=== PATIENT | male | born 1955 | race Caucasian/White ===

== ENCOUNTER 2020-01-23 10:18 | Inpatient (IN) | payer BC, OTHER ==
[~2020-01-23] VITALS: Ht 177.8 cm; Wt 133.0 kg
--- OUTSIDE RECORDS SUMMARY | 2020-01-23 10:22 | XMS REPORT | Referral Summary ---
Author Author [facility] Organization [facility] Address Unknown Phone Unavailable Care Team Providers Care Almond Paste Molder Name Role Phone Rhett Teran PCP Encounter VC Date(s): 01/24/15 - 01/24/15 [facility], [facility], [facility] [address] [place] [address] Discharge Disposition: 01-Home or Self Care Attending Physician: Rhett Teran MD Admitting Physician: Rhett Teran MD Vital Signs No data available for this section Problem List Condition Effective Dates Status Health Status Informan t Allergic rhinitis Active (disorder)(Confirmed ) Asthma(Confirmed)1 Active Benign hypertrophy Active of prostate(Confirmed) Gastroesophageal Active reflux disease (disorder)(Confirmed ) History of colon Active polyps(Confirmed) Obesity(Confirmed) Active patient Right Elbow & 03/01/07 Active Forearm Strain(Confirmed)2 1See Conversion Document. 2Home. See Conversion Document. Allergies, Adverse Reactions, Alerts No Known Medication Allergies Medications aspirin 81 mg, Oral, Daily, Aspir-81 81 mg tablet, delayed release Start Date: 01/19/15 Status: Ordered Centrum Silver oral tablet 1 tabs, Oral, Daily Start Date: 01/19/15 Status: Ordered ferrous sulfate 65 mg, Oral, Daily Start Date: 01/19/15 Status: Ordered fluticasone 50 mcg/inh nasal spray 50 mcg 1 sprays, Nasal, Daily, by intranasal route every day in each nostril., # 16 g, 3 Refill(s), Pharmacy: [facility] Start Date: 04/22/15 Stop Date: 04/16/16 Status: Ordered glucosamine Oral, 0 Refill(s) Start Date: 01/24/15 Status: Ordered ibuprofen Oral, q6hr, take 1 capsule by oral route every 6 hours as needed. Start Date: 01/19/15 Status: Ordered omega-3 polyunsaturated fatty acids oral capsule 1 caps, Oral, Daily, [place]-3 Start Date: 01/19/15 Status: Ordered omeprazole 40 mg oral delayed release capsule See Instructions, TAKE 1 CAPSULE DAILY, # 90 caps, eRx: [facility] [place], TAKE 1 CAPSULE DAILY Start Date: 08/03/15 Status: Ordered Vitamin C 500 mg, Oral, Daily, Vitamin C 500 mg capsule, extended release. Start Date: 01/19/15 Status: Ordered vitamin E 400 intl units oral capsule 400 Intl_Units 1 caps, Oral, Daily Start Date: 01/19/15 Status: Ordered Results No data available for this section Immunizations No data available for this section Procedures Procedure Date Related Diagnosis Body Site Hernia1 1See Conversion Document. Social History Social History Type Response Smoking Status Never smoker Assessment and Plan No data available for this section
--- OUTSIDE RECORDS SUMMARY | 2020-01-23 10:22 | XMS REPORT | Referral Summary ---
Author Author [facility] Organization [facility] Address Unknown Phone Unavailable Care Team Providers Care Agent Based Modeler Name Role Phone Rhett Teran PCP Encounter VC Date(s): 02/07/15 - 02/07/15 [facility] [place], [facility] [address] [place] [address] Discharge Disposition: 01-Home or Self Care Attending Physician: Ryan Arnett MD Admitting Physician: Ryan Arnett MD Referring Physician: Rhett Teran MD Vital Signs Most recent to 1 oldest [Reference Range]: Peripheral Pulse 74 bpm Rate [60-100 bpm] (02/07/15 1:29 PM) Blood Pressure 128/85 mmHg [90-140/60-90 mmHg] (02/07/15 1:29 PM) Problem List Condition Effective Dates Status Health [...] nostril., # 16 g, 3 Refill(s), Pharmacy: [facility] Start Date: 04/22/15 Stop Date: 04/16/16 Status: Ordered glucosamine Oral, 0 Refill(s) Start Date: 01/24/15 Status: Ordered ibuprofen Oral, q6hr, take 1 capsule by oral route every 6 hours as needed. Start Date: 01/19/15 Status: Ordered omega-3 polyunsaturated fatty acids oral capsule 1 caps, Oral, Daily, [place]-3 Start Date: 01/19/15 Status: Ordered omeprazole 40 mg oral delayed release capsule See Instructions, TAKE 1 CAPSULE DAILY, # 90 caps, [facility]Rx: [facility] [place], TAKE 1 CAPSULE DAILY [...]
--- NOTE | 2020-01-23 10:23 | NUR ---
ULYSSES DUMONT admitted to room 232-1, with an admitting diagnosis of CVA, on 01/23/20 from [facility] via [facility] VE[facility]ICLE, accompanied by FAMILY. ULYSSES DUMONT introduced to surroundings, call light, bed controls, phone, TV, temperature control, lights, meal times, smoking policy, visitor policy, side rail policy, bathrooms and showers. Patient Rights given to patient in the handbook. ULYSSES DUMONT verbalizes understanding that [facility] is not responsible for the loss or damage to any personal effects or valuables that are kept in the patient's possession during their hospitalization. The following Patient Care Plans were discussed with the PATIENT: Discharge Planning, ALTERED CEREBRAL TISSUE PERFUSION, IMPAIRED MOBILITY, SELF CARE DEFICIT, and KNOWLEDGE DEFICIT: CVA. ULYSSES DUMONT verbalizes understanding of Interdisciplinary Patient Education. Patient received Patient Rights Booklet, which includes Privacy Act Statement and Data Collection Information Summary.
--- OUTSIDE RECORDS SUMMARY | 2020-01-23 10:23 | XMS REPORT | Referral Summary ---
Author Author [facility] Organization [facility] Address Unknown Phone Unavailable Care Team Providers Care Gig Tender Name Role Phone Rhett Teran PCP Encounter VC Date(s): 02/07/15 - 02/07/15 [facility] [address] [place] [place] [address] Discharge Disposition: 01-Home or Self Care Attending [...] acids oral capsule 1 caps, Oral, Daily, [place]-3 Start Date: 01/19/15 Status: Ordered omeprazole 40 mg oral delayed release capsule See Instructions, TAKE 1 CAPSULE DAILY, # 90 caps, [facility]Rx: [facility] [place], TAKE 1 CAPSULE DAILY [...]
--- OUTSIDE RECORDS SUMMARY | 2020-01-23 10:23 | XMS REPORT | Referral Summary ---
Author Author [facility] Organization [facility] Address Unknown Phone Unavailable Care Team Providers Care Auto Parts Delivery Driver Name Role Phone Rhett Teran PCP Encounter VC Date(s): 03/28/15 - 03/28/15 [facility], [facility] [address] [place] [place] [address] Discharge Disposition: 01-Home or Self Care Attending Physician: Ryan Arnett MD Admitting Physician: Ryan Arnett MD Vital Signs No data available for [...] nostril., # 16 g, 3 Refill(s), Pharmacy: [facility] Start Date: 04/22/15 Stop Date: 04/16/16 Status: Ordered glucosamine Oral, 0 Refill(s) Start Date: 01/24/15 Status: Ordered ibuprofen Oral, q6hr, take 1 capsule by oral route every 6 hours as needed. Start Date: 01/19/15 Status: Ordered omega-3 polyunsaturated fatty acids oral capsule 1 caps, Oral, Daily, [place]-3 Start Date: 01/19/15 Status: Ordered omeprazole 40 [...]
--- OUTSIDE RECORDS SUMMARY | 2020-01-23 10:23 | XMS REPORT | Referral Summary ---
Author Author [facility], [facility], [facility] Organization [facility] Address Unknown Phone Unavailable Care Team Providers Care Inspection And Testing Supervisor Name Role Phone Rhett Teran PCP Encounter VC Date(s): 04/21/15 - 04/21/15 [facility], [facility], Card[facility] [address] [place] [address] Discharge Diagnosis: PALPITATIONS Discharge Diagnosis: Family history of heart disease Discharge Disposition: 01-Home or Self Care Attending [...] nostril., # 16 g, 3 Refill(s), Pharmacy: [facility] Start Date: 04/22/15 Stop Date: 04/16/16 Status: Ordered glucosamine Oral, 0 Refill(s) Start Date: 01/24/15 Status: Ordered ibuprofen Oral, q6hr, take 1 capsule by oral route every 6 hours as needed. Start Date: 01/19/15 Status: Ordered omega-3 polyunsaturated fatty acids oral capsule 1 caps, Oral, Daily, [place]-3 Start Date: 01/19/15 Status: Ordered omeprazole 40 mg oral delayed release capsule See Instructions, TAKE 1 CAPSULE DAILY, # 90 caps, eRx: [facility] [place], TAKE 1 CAPSULE DAILY Start Date: 10/21/15 Status: Ordered Vitamin C 500 mg, Oral, [...]
--- OUTSIDE RECORDS SUMMARY | 2020-01-23 10:23 | XMS REPORT | Referral Summary ---
Author Author [facility], [facility] Organization [facility] Address Unknown Phone Unavailable Care Team Providers Care Pipe Organ Mechanic Apprentice Name Role Phone Rhett Teran PCP Encounter [facility] [id number] Date(s): 05/28/17 - 05/28/17 [facility] [address] [address] Discharge Diagnosis: Colon polyps Discharge Disposition: 01-Home or Self Care Attending Physician: Sharon Escamilla MD Admitting Physician: Sharon Escamilla MD Vital Signs Most recent to 1 oldest [Reference Range]: Temperature Oral 36.6 degC [35.8-37.3 degC] (05/28/17 7:44 AM) Peripheral Pulse 68 bpm Rate [60-100 bpm] (05/28/17 7:44 AM) Respiratory Rate 18 br/min [14-20 br/min] (05/28/17 7:44 AM) Blood Pressure 115/81 mmHg [90-140/60-90 mmHg] (05/28/17 7:44 AM) SpO2 96 % (05/28/17 7:44 AM) Problem List Condition Effective Dates Status Health [...] Oral, Daily Start Date: 01/19/15 Status: Ordered Flax Seed Oil 0 Refill(s) Start Date: 04/18/16 Status: Ordered fluticasone 50 mcg/inh nasal spray See Instructions, USE ONE SPRAY IN EACH NOSTRIL DAILY, # 16 g, 2 Refill(s), eRx: [facility], USE ONE SPRAY IN EACH NOSTRIL DAILY Start Date: 07/23/16 Status: Ordered glucosamine Oral, 0 Refill(s) Start Date: 01/24/15 Status: Ordered ibuprofen Oral, q6hr, take 1 capsule by oral route every 6 hours as needed. Start Date: 01/19/15 Status: Ordered omega-3 polyunsaturated fatty acids oral capsule 1 caps, Oral, Daily, [place]-3 Start Date: 01/19/15 Status: Ordered omeprazole 40 mg oral delayed release capsule See Instructions, TAKE 1 CAPSULE DAILY, # 90 caps, 3 Refill(s), Pharmacy: [facility], TAKE 1 CAPSULE DAILY Start Date: 04/23/17 Status: Ordered Vitamin C 500 mg, Oral, Daily, Vitamin C 500 mg capsule, extended release. Start Date: 01/19/15 Status: Ordered vitamin E 400 intl units oral capsule 400 Intl_Units 1 caps, Oral, Daily Start Date: 01/19/15 Status: Ordered Results No data available for this section Immunizations Given and Recorded Vaccine Date Status Refusal Reason zoster vaccine live 08/01/16 Given tetanus/diphth/pertuss (Tdap) adult/adol 07/04/16 Given influenza virus vaccine, inactivated 07/04/16 G iven Procedures Procedure Date Related Diagnosis Body Site Hernia1 1See Conversion Document. Social History Social History Type Response Smoking Status Never smoker entered on: 01/19/15 Assessment and Plan Extracted from: Title: Ambulatory Patient Education Author: Fátima Escamilla MD Date: 05/28/17 Gastroenterology Colon Polyps Polyps are tissue growths inside the body. Polyps can grow in many places, including the large intestine (colon). A polyp may be a round bump or a mushroom-shaped growth. You could have one polyp or several. Most colon polyps are noncancerous (benign). However, some colon polyps can become cancerous over time. CAUSES The exact cause of colon polyps is not known. RISK FACTORS This condition is more likely to develop in people who: Have a family history of colon cancer or colon polyps. Are older than 50 or older than 45 if they are . Have inflammatory bowel disease, such as ulcerative colitis or Crohn disease. Are overweight. Smoke cigarettes. Do not get enough exercise. Drink too much alcohol. Eat a diet that is: High in fat and red meat. Low in fiber. Had childhood cancer that was treated with abdominal radiation. SYMPTOMS Most polyps do not cause symptoms. If you have symptoms, they may include: Blood coming from your rectum when having a bowel movement. Blood in your stool.The stool may look dark red or black. A change in bowel habits, such as constipation or diarrhea. DIAGNOSIS This condition is diagnosed with a colonoscopy. This is a procedure that uses a lighted, flexible scope to look at the inside of your colon. TREATMENT Treatment for this condition involves removing any polyps that are found. Those polyps will then be tested for cancer. If cancer is found, your health care provider will talk to you about options for colon cancer treatment. HOME CARE INSTRUCTIONS Diet Eat plenty of fiber, such as fruits, vegetables, and whole grains. Eat foods that are high in calcium and vitamin D, such as milk, cheese, yogurt, eggs, liver, fish, and broccoli. Limit foods high in fat, red meats, and processed meats, such as hot dogs, sausage, shelley, and lunch meats. Maintain a healthy weight, or lose weight if recommended by your health care provider. General Instructions Do not smoke cigarettes. Do not drink alcohol excessively. Keep all follow-up visits as told by your health care provider. This is important. This includes keeping regularly scheduled colonoscopies. Talk to your health care provider about when you need a colonoscopy. Exercise every day or as told by your health care provider. SEEK MEDICAL CARE IF: You have new or worsening bleeding during a bowel movement. You have new or increased blood in your stool. You have a change in bowel habits. You unexpectedly lose weight. This information is not intended to replace advice given to you by your health care provider. Make sure you discuss any questions you have with your health care provider. Document Released: 05/01/2005 Document Revised: 11/26/2016 Document Reviewed: 06/25/2016 [employer] Interactive Patient Education 2017 [employer] No follow up information was provided.
--- OUTSIDE RECORDS SUMMARY | 2020-01-23 10:23 | XMS REPORT | Referral Summary ---
Author Author [facility], [employer] [facility], [facility] [place] [facility], [place] Address Unknown Phone Unavailable Care Team Providers Care Special Warfare Operator Name Role Phone Rhett Teran PCP Encounter VC Date(s): 03/28/15 - 03/28/15 [facility] [place] [address] [place], [place] [address] Discharge Disposition: 01-Home or Self Care Attending Physician: Chuy Diamond MD Referring Physician: Ryan Arnett MD Vital Signs No [...] nostril., # 16 g, 3 Refill(s), Pharmacy: [facility] Start Date: 04/22/15 Stop Date: 04/16/16 Status: Ordered glucosamine Oral, 0 Refill(s) Start Date: 01/24/15 Status: Ordered ibuprofen Oral, q6hr, take 1 capsule by oral route every 6 hours as needed. Start Date: 01/19/15 Status: Ordered omega-3 polyunsaturated fatty acids oral capsule 1 caps, Oral, Daily, [place]-3 Start Date: 01/19/15 Status: Ordered omeprazole 40 [...]
--- OUTSIDE RECORDS SUMMARY | 2020-01-23 10:23 | XMS REPORT | Referral Summary ---
Author Author [facility], [facility], [facility] Organization [facility] [facility] Address Unknown Phone Unavailable Care Team Providers Care Chief Cook Name Role Phone Rhett Teran PCP Encounter VC Date(s): 02/07/15 - 02/07/15 [facility], [facility], Card[facility] [address] [place] [address] Discharge Disposition: 01-Home or Self Care [...] acids oral capsule 1 caps, Oral, Daily, [place]-3 Start Date: 01/19/15 Status: Ordered omeprazole 40 mg oral delayed release capsule See Instructions, TAKE 1 CAPSULE DAILY, # 90 caps, eRx: [facility] [place], TAKE 1 CAPSULE DAILY [...]
--- OUTSIDE RECORDS SUMMARY | 2020-01-23 10:23 | XMS REPORT | Referral Summary ---
Author Author [facility] Organization [facility] Address Unknown Phone Unavailable Care Team Providers Care Vamper Name Role Phone Rhett Teran PCP Encounter VC Date(s): 04/23/17 - 04/23/17 [facility] [place] [address] [place] [address] J S Discharge Diagnosis: History of colon polyps Discharge Diagnosis: Vertigo Discharge Diagnosis: Gastroesophageal reflux disease (disorder) Discharge Disposition: 01-Home or Self Care Attending Physician: Rhett Teran MD Admitting Physician: Rhett Teran MD Vital Signs Most recent to 1 oldest [Reference Range]: Apical Heart Rate 74 bpm [60-100 bpm] (04/23/17 8:14 AM) Blood Pressure 138/80 mmHg [90-140/60-90 mmHg] (04/23/17 8:14 AM) SpO2 96 % (04/23/17 8:14 AM) Problem List Condition Effective Dates Status [...] acids oral capsule 1 caps, Oral, Daily, [place]-3 Start Date: 01/19/15 Status: Ordered omeprazole 40 mg oral delayed release capsule See Instructions, TAKE 1 CAPSULE DAILY, # 90 caps, 3 Refill(s), Pharmacy: [facility], TAKE 1 CAPSULE DAILY Start Date: 04/23/17 Status: Ordered Vitamin C 500 mg, Oral, Daily, Vitamin C 500 mg capsule, extended release. Start Date: 01/19/15 Status: Ordered vitamin E 400 intl units oral capsule 400 Intl_Units 1 caps, Oral, Daily Start Date: 01/19/15 Status: Ordered Results Hematology Most recent to 1 oldest [Reference Range]: WBC [4.8-10.8 4.8 10*3/uL 10*3/uL] (04/23/17 12:00 AM) RBC [4.60-6.20] 4.65 (04/23/17 12:00 AM) Hgb [14.0-18.0 13.8 gm/dL gm/dL] *LOW* (04/23/17 12:00 AM) Hct [42.0-52.0 %] 40.7 % *LOW* (04/23/17 12:00 AM) MCV [82.0-99.0 fL] 87.5 fL (04/23/17 12:00 AM) MCH [27.0-32.0 pg] 29.7 pg (04/23/17 12:00 AM) MCHC [32.0-36.0 33.9 gm/dL gm/dL] (04/23/17 12:00 AM) RDW [11.5-14.5 %] 13.6 % (04/23/17 12:00 AM) Platelet [150-400 245 10*3/uL 10*3/uL] (04/23/17 12:00 AM) MPV [8.8-14.8 fL] 10.0 fL (04/23/17:00 AM) Immature 0.4 % Granulocytes (04/23/17:00 AM) [0.0-1.0 %] Neutrophils [51-75 62 % %] (04/23/17:00 AM) Lymphocytes [20-46 26 % %] (04/23/17:00 AM) Monocytes [4-11 %] 9 % (04/23/17:00 AM) Eosinophils [0-4 %] 2 % (04/23/17 AM) Basophils [0-2 %] 0 % (04/23/1700 AM) Neutro Absolute 2.95 [1.90-7.00] (04/23/17:00 AM) Lymph Absolute 1.24 [0.80-3.30] (04/23/17:00 AM) [place] Absolute 0.45 [0.30-1.00] (04/23/17 12:00 AM) Eos Absolute 0.11 [0.00-0.50] (04/23/17:00 AM) Baso Absolute 0.01 [0.00-0.20] (04/23/17:00 AM) Chemistry Most recent to 1 oldest [Reference Range]: Sodium Lvl [135-144 138 mEq/L mEq/L] (04/23/17:00 AM) Potassium Lvl 4.9 mEq/L [3.5-5.2 mEq/L] (04/23/17:00 AM) Chloride [99-111 104 mEq/L mEq/L] (04/23/17 12:00 AM) CO2 [23-31 mEq/L] 27 mEq/L (04/23/17:00 AM) AGAP [3-20 mEq/L] 7 mEq/L (04/23/17 12:00 AM) BUN [8-26 mg/dL] 14 mg/dL (04/23/17 12:00 AM) Glucose Lvl [70-99 94 mg/dL mg/dL] (9/5/17 12:00 AM) Creatinine Lvl 1.09 mg/dL [0.72-1.25 mg/dL] (04/23/17 12:00 AM) eGFR [>60 mL/min] >60 mL/min 1 (04/23/17 12:00 AM) Calcium Lvl 9.4 mg/dL [8.4-10.2 mg/dL] (04/23/17 12:00 AM) Albumin Lvl [3.4-4.8 4.2 gm/dL gm/dL] (04/23/17 12:00 AM) Total Protein 6.6 gm/dL [6.0-7.6 gm/dL] (04/23/17 12:00 AM) Globulin [1.8-4.0 2.4 gm/dL gm/dL] (04/23/17 12:00 AM) ALT [0-55 U/L] 25 U/L (04/23/17 12:00 AM) AST [5-34 U/L] 20 U/L (04/23/17 12:00 AM) Alk Phos [40-150 84 U/L U/L] (04/23/17 12:00 AM) Bili Total [0.2-1.2 1.0 mg/dL mg/dL] (04/23/17 12:00 AM) PSA (wihout Reflex 0.6 ng/mL 2 Free) [0.0-4.5 (04/23/17 12:00 AM) ng/mL] Chol [0-199 mg/dL] 172 mg/dL (04/23/17 12:00 AM) Trig [0-149 mg/dL] 118 mg/dL (04/23/17 12:00 AM) HDL [40-84 mg/dL] 37 mg/dL *LOW* (04/23/17 12:00 AM) LDL [0-130 mg/dL] 111 mg/dL (04/23/17 12:00 AM) VLDL Cholesterol 24 mg/dL [0-28 mg/dL] (04/23/17 12:00 AM) Cardiac Risk 4.6 [0.0-5.7] (04/23/17 12:00 AM) TSH with Reflex Free 3.17 T4 [0.35-4.94] (04/23/17 12:00 AM) 1Result Comment: Multiply eGFR results by 1.21 for race. 2Result Comment: AUA PSA Best Practice Guidelines: Age-Adjusted PSA Values by Ethnic Group Age Range Asians - Caucasians Americans 40-49 0-2.0 0-2.0 0-2.5 50-59 0-3.0 0-4.0 0-3.5 60-69 0-4.0 0-4.5 0-4.5 70-79 0-5.0 0-5.5 0-6.5 Urinalysis Most recent to 1 oldest [Reference Range]: UA Color Yellow (04/23/17 12:00 AM) UA Appear Clear (04/23/17 12:00 AM) UA pH [5.0-8.0] 7.0 (04/23/17 12:00 AM) UA Leuk Est Negative [Negative] (04/23/17 12:00 AM) UA Nitrite Negative [Negative] (04/23/17 12:00 AM) UA Protein Negative [Negative] (04/23/17 12:00 AM) UA Glucose Negative [Negative] (04/23/17 12:00 AM) UA Ketones Negative [Negative] (04/23/17 12:00 AM) UA Urobilinogen 0.2 mg/dL [<1.0 mg/dL] (04/23/17 12:00 AM) UA Bili [Negative] Negative (04/23/17 12:00 AM) UA Blood [Negative] Negative (04/23/17 12:00 AM) UA Spec Grav 1.011 [1.003-1.030] (04/23/17 12:00 AM) Type Voided (04/23/17 12:00 AM) Immunizations Given and Recorded Vaccine Date Status Refusal Reason zoster vaccine live 08/01/16 Given tetanus/diphth/pertuss (Tdap) adult/adol 07/04/16 Given influenza virus vaccine, inactivated 07/04/16 G iven Procedures Procedure Date Related Diagnosis Body Site Collection of venous blood by venipuncture 04/23/17 Hernia1 1See Conversion Document. Social History Social History Type Response Smoking Status Never smoker entered on: 01/19/15 Assessment and Plan Extracted from: Title: Office Visit Note Author: Rhett Teran MD Date : 04/23/17 1.Gastroesophageal reflux di sease (disorder) 2.History of colon polyps 3.Vertigo BPH (benign prostatic hyperplasia) Physical exam Ordered: Collection Of Venous Blood By Venipuncture [id number] Follow-up on lab results when available We will arrange for a routine screening colonoscopy Referral to physical therapy for vestibular rehabilitation No other changes are needed at this time. Recommend patient continue the same dose of their current medications and otherwise follow-up as needed. Medication refills will be provided as needed. Anticipate seeing them back at their next scheduled appointment.
--- OUTSIDE RECORDS SUMMARY | 2020-01-23 10:23 | XMS REPORT | Referral Summary ---
Author Author [facility] Organization [facility] Address Unknown Phone Unavailable Care Team Providers Care Finish Painter Name Role Phone Rhett Teran PCP Encounter [facility] Date(s): 06/12/17 - 06/12/17 [facility] [place] [address] [place] [address]- S Discharge Disposition: 01-Home or Self Care Attending [...] acids oral capsule 1 caps, Oral, Daily, [place]-3 Start Date: 01/19/15 Status: Ordered omeprazole 40 [...] smoker entered on: 01/19/15 Assessment and Plan No data available for this section
--- OUTSIDE RECORDS SUMMARY | 2020-01-23 10:23 | XMS REPORT | Referral Summary ---
Author Author [facility], [facility] Organization [facility] Address Unknown Phone Unavailable Care Team Providers Care Stainless Steel Finisher Name Role Phone Rhett Teran PCP Encounter VC Date(s): 04/18/16 - 04/18/16 [facility] Medicine [address] [place] [address] F Discharge Disposition: 01-Home or Self Care Attending Physician: Rhett Teran MD Admitting Physician: Rhett Teran MD Vital Signs Most recent to 1 oldest [Reference Range]: Peripheral Pulse 73 bpm Rate [60-100 bpm] (04/18/16 10:50 AM) Blood Pressure 136/78 mmHg [90-140/60-90 mmHg] (04/18/16 10:50 AM) SpO2 98 % (04/18/16 10:50 AM) Problem List Condition Effective Dates Status [...] delayed release Start Date: 01/19/15 Status: Ordered Calcium 600+D Oral, 0 Refill(s) Start Date: 04/18/16 Status: Ordered Centrum Silver oral tablet 1 [...] acids oral capsule 1 caps, Oral, Daily, [place]-3 Start Date: 01/19/15 Status: Ordered omeprazole 40 mg oral delayed release capsule See Instructions, TAKE 1 CAPSULE DAILY, # 90 caps, 0 Refill(s), Pharmacy: [facility], TAKE 1 CAPSULE DAILY Start Date: 04/18/16 Status: Ordered Vitamin C 500 mg, Oral, Daily, Vitamin C 500 mg capsule, extended release. Start Date: 01/19/15 Status: Ordered vitamin E 400 intl units oral capsule 400 Intl_Units 1 caps, Oral, Daily Start Date: 01/19/15 Status: Ordered Results Hematology Most recent to 1 oldest [Reference Range]: WBC [4.8-10.8 7.9 10*3/uL 10*3/uL] (04/18/16 11:15 AM) RBC [4.60-6.20] 4.74 (04/18/16 11:15 AM) Hgb [14.0-18.0 14.1 gm/dL gm/dL] (04/18/16 11:15 AM) Hct [42.0-52.0 %] 39.9 % *LOW* (04/18/16 11:15 AM) MCV [82.0-99.0 fL] 84.2 fL (04/18/16 11:15 AM) MCH [27.0-32.0 pg] 29.7 pg (04/18/16 11:15 AM) MCHC [32.0-36.0 35.3 gm/dL gm/dL] (04/18/16 11:15 AM) RDW [11.5-14.5 %] 12.9 % (04/18/16 11:15 AM) Platelet [150-400 298 10*3/uL 10*3/uL] (1615 AM) MPV [8.8-14.8 fL] 8.9 fL (04/18/16:15 AM) Immature 0.3 % Granulocytes (1615 AM) [0.0-1.0 %] Neutrophils [51-75 77 % %] *HI* (1615 AM) Lymphocytes [20-46 15 % %] *LOW* (1615 AM) Monocytes [4-11 %] 7 % (1615 AM) Eosinophils [0-4 %] 1 % (04/18/16 AM) Basophils [0-2 %] 0 % (1615 AM) Neutro Absolute 6.10 10*3 [1.90-7.00 10*3] (1615 AM) Lymph Absolute 1.18 10*3 [0.80-3.30 10*3] (04/18/16:15 AM) [place] Absolute 0.55 10*3 [0.30-1.00 10*3] (04/18/16:15 AM) Eos Absolute 0.07 10*3 [0.00-0.50 10*3] (04/18/16:15 AM) Baso Absolute 0.02 10*3 [0.00-0.20 10*3] (04/18/16:15 AM) Chemistry Most recent to 1 oldest [Reference Range]: Sodium Lvl [135-144 137 mEq/L mEq/L] (04/18/16:15 AM) Potassium Lvl 4.3 mEq/L [3.5-5.2 mEq/L] (04/18/16:15 AM) Chloride [99-111 104 mEq/L mEq/L] (04/18/16:15 AM) CO2 [23-31 mEq/L] 29 mEq/L (04/18/16 11:15 AM) AGAP [3-20] 4 (04/18/16:15 AM) BUN [8-26 mg/dL] 14 mg/dL (1615 AM) Glucose Lvl [70-99 99 mg/dL mg/dL] (1615 AM) Creatinine Lvl 1.04 mg/dL [0.72-1.25 mg/dL] (1615 AM) eGFR [>60 mL/min] >60 mL/min 1 (04/18/16 AM) Calcium Lvl 9.9 mg/dL [8.9-10.5 mg/dL] (1615 AM) Albumin Lvl [3.4-4.8 4.5 gm/dL gm/dL] (04/18/16 AM) Total Protein 6.7 gm/dL [6.0-7.6 gm/dL] (1615 AM) Globulin [1.8-4.0 2.2 gm/dL gm/dL] (04/18/16 AM) ALT [0-55 U/L] 26 U/L (04/18/16 AM) AST [5-34 U/L] 22 U/L (04/18/16:15 AM) Alk Phos [40-150 85 U/L U/L] (04/18/16 AM) Bili Total [0.2-1.2 1.6 mg/dL mg/dL] *HI* (04/18/16: AM) PSA (wihout Reflex 0.4 ng/mL 2 Free) [0.0-4.5 (04/18/16: AM) ng/mL] Chol [0-199 mg/dL] 179 mg/dL (04/18/16 11:15 AM) Trig [0-149 mg/dL] 183 mg/dL *HI* (04/18/16 AM) HDL [40-84 mg/dL] 35 mg/dL *LOW* (04/18/16 AM) LDL [0-130 mg/dL] 107 mg/dL (04/18/16 11:15 AM) VLDL Cholesterol 37 mg/dL [0-28 mg/dL] *HI* (8/31/16 11:15 AM) Cardiac Risk 5.1 [0.0-5.7] (04/18/16 11:15 AM) TSH with Reflex Free 2.97 T4 [0.35-4.94] (04/18/16 11:15 AM) 1Result Comment: Multiply eGFR results by 1.21 for race. 2Result Comment: AUA PSA Best Practice Guidelines: Age-Adjusted PSA Values by Ethnic Group Age Range Asians - Caucasians Americans 40-49 0-2.0 0-2.0 0-2.5 50-59 0-3.0 0-4.0 0-3.5 60-69 0-4.0 0-4.5 0-4.5 70-79 0-5.0 0-5.5 0-6.5 Urinalysis Most recent to 1 oldest [Reference Range]: UA Color Yellow (04/18/16 11:14 AM) UA Appear Clear (04/18/16 11:14 AM) UA pH [5.0-8.0] 7.0 (04/18/16 11:14 AM) UA Leuk Est Negative [Negative] (04/18/16 11:14 AM) UA Nitrite Negative [Negative] (04/18/16 11:14 AM) UA Protein Negative [Negative] (04/18/16 11:14 AM) UA Glucose Negative [Negative] (04/18/16 11:14 AM) UA Ketones Negative [Negative] (04/18/16 11:14 AM) UA Urobilinogen 0.2 mg/dL [<1.0 mg/dL] (04/18/16 11:14 AM) UA Bili [Negative] Negative (04/18/16 11:14 AM) UA Blood [Negative] Negative (04/18/16 11:14 AM) UA Spec Grav 1.009 [1.003-1.030] (04/18/16 11:14 AM) Type Clean Catch (04/18/16 11:14 AM) Immunizations No data available for this section Procedures Procedure Date Related Diagnosis Body Site Collection of venous blood by venipuncture 04/18/16 Hernia1 1See Conversion Document. Social History Social History Type Response Smoking Status Never smoker Assessment and Plan No data available for this section
--- OUTSIDE RECORDS SUMMARY | 2020-01-23 10:23 | XMS REPORT | Referral Summary ---
Author Author [facility], [facility], Cardiology Organization [facility], [facility]iology Address Unknown Phone Unavailable Care Team Providers Care Talent Management Specialist Name Role Phone Rhett Teran PCP Encounter VC Date(s): 04/21/15 - 04/21/15 [facility], [place], Cardiology [address] [place] [address] Discharge Diagnosis: Ectopic atrial tachycardia Discharge Diagnosis: Atrial premature beats Discharge Diagnosis: Sinus node dysfunction Discharge Diagnosis: Sleep related hypoxia Discharge Disposition: 01-Home or Self Care Attending Physician: Ryan Arnett MD Admitting Physician: Ryan Arnett MD Vital Signs Most recent to 1 oldest [Reference Range]: Peripheral Pulse 68 bpm Rate [60-100 bpm] (04/21/15 2:30 PM) Blood Pressure 114/80 mmHg [90-140/60-90 mmHg] (04/21/15 2:30 PM) Problem List Condition Effective Dates Status [...] acids oral capsule 1 caps, Oral, Daily, [place]-3 Start Date: 01/19/15 Status: Ordered omeprazole 40 [...] Smoking Status Never smoker Assessment and Plan Extracted from: Title: Office Visit Note Author: Ryan Arnett MD Date: 04/21/15 Assessment/Plan 1.Sinus node dysfunction Ordered: Return to Clinic 2.Atrial premature beats Ordered: Return to Clinic 3.Ectopic atrial tachycardia Ordered: Return to Clinic 4.Sleep related hypoxia Discussion:We reviewedthe findings. I lili a diagram of the heart in order to educate him regarding the phenomenon of sinus node dysfunction and atrial premature contractions andnonsustained atrial tachycardia. We also discussed hispossible eyelidabnormality and his apparent sleep disorder. At this point, it doesn't appear necessary to add any medication for his heart rhythm. I advised him to go ahead with a sleep consultation and he is in agreement. I advised him to call if he has any adverse sustained arrhythmias. I advised him to confer with his eye doctor regarding the eyelid observations. We reviewed his echo findings which actually appeared to be quite reassuring. He has very minor degree ofatrial enlargement. Ordered: Return to Clinic Referrals to Other Providers Referred by: Ryan Arnett MD
--- OUTSIDE RECORDS SUMMARY | 2020-01-23 10:23 | XMS REPORT | Clinical Summary ---
Author Author MD Norris James Bradley Organization [facility], [facility] Address [address] [place] [address] Phone Care Team Providers Care Prn Physical Therapist Name Role Phone MD Norris Bradley W Unavailable [ ] Conditions or Problems Problem Name Problem Code Onset Date Status Entry Date Provider Comment Standard Description Annotate Complex tear of medial meniscus, current injury, left knee, initial encounter 115075640 (SNOMED CT) Active Diana Dickey Te ar of medial meniscus of knee Knee pain, left 10691048 (SNOMED CT) Active Diana Dickey Knee pain Medications Medication Instructions Start Date Stop Date Generic Name NDC Pr ovider OMEPRAZOLE-SODIUM BICARBONATE 40-1100 MG CAPS 1/day OMEPRAZOLE-SODIUM BICARBONATE 96823025234 Mariann Roxy ASPIRIN 81 MG TABS 1/day ASPIRIN 63692566777 Mariann Roxy GLUCOSAMINE HCL 1500 MG TABS 1/day GLUCOSAMINE HCL 99959334232 Mariann Roxy VITAMIN C 500 MG TABS 1/day ASCORBIC ACID 0053 8927043 Mariann Roxy VITAMIN E 400 UNIT TABS VITAMIN E 157349 91519 Mariann Roxy MULTIVITAMINS CAPS MULTIPLE VITAMIN 3848 1676025 Mariann Roxy FISH OIL CAPS [place]ME[place]-3 FATTY ACIDS CAPS 8 [id number] Mariann Roxy LINSEED OIL OIL FLAXSEED OIL [id number] Mariann Roxy IRON TABS FERROUS SULFATE TABS [id number] 70 Mariann Roxy Medications Administered No information available. Allergies, Adverse Reactions, Alerts Observed no known allergies at Results Date Name Value Unit Range Flag Descriptio n Clinical Summary: Patient Portal Indicat or PATPORTALPIN Y This w ill be used to establish a PIN number for patients to register in the Patient Portal. Clinical Summary: Data Submitted by aJnki ent in Portal DEP ROS ENDO Denies endocrine symptoms data entered by patient, review of systems, endocrine DEP ROS SKIN Denies skin symptoms data entered by patient, review of systems, skin DEP ROS PSYC Denies mental health symptoms data entered by patient, review of systems, psychiatric DEP ROS NEUR Denies neurological symptoms data entered by patient, review of systems, neurology DEP ROS MUSK knee pain data e ntered by patient, review of systems, musculoskeletal DEP ROS Denies Genitourinary symptoms data entered by patient, review of systems, genitourinary DEP ROS CARD Denies heart symptoms data entered by patient, review of systems, cardiac DEP ROS PULM Denies respiratory symptoms data entered by patient, review of systems, pulmonary DEP ROS GI Denies gastrointestinal symptoms data entered by patient, review of systems, gastrointestinal DEP ROS HEME Denies Hematologic/Oncologic symptoms data entered by patient, review of systems, hematological DEP ROS GENL Denies general healt h symptoms, Seen primary care physican in the last year data e ntered by patient, review of systems, general (such as fever, chills, weight change, etc.) [id number] Better GE use on ly - for LinkLogic import when terms are not otherwise specified PT MASSAGE No physical therapy, massage ICETRTMT No Patient h as tried ice for pain HEATTRTMT No Patient h as tried heat for pain CHIROPR PROB No person al 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 MEDICAT LIST Multivitamin 1 a day Fish Oil 1200 MG 1 a day Flaxseed oil 1000 MG 1 a day Iron 65 MG 1 a day Vitamin C 500 MG 1 a day Vitamin E 400 US 1 a day list of medicati ons FH HTN Father hypertens ion, family hx FH HEART DIS Father cardia c disease, family hx FH OTHER CA Father cancer, other, family hx DEP ALG LIST I don't have any michelet g allergies.,I don't have any food allergies.,Plant pollens (Hay Fever) Data entered by patient, allergy list DEP MED LIST Omeprazole / Sodium Bicarbonate 40 mg;1100 mg Cap, 1 times per day,Aspirin 81 mg Tab, 1 times per day,Glucosamine 1500 mg Tab, 1 times per day Data entered by patient, medication list Office Visit: NEW LT KNEE PAIN, NO INJUR Y OR SURGERY, NO IMAGES, BCBS, 1... ORALTOBACUSE No [place] smoking status NHIS SMOK STATUS Never smoker Toba cco & president smoking status NDIS CARD RSK GRP No cardia c risk group DIET PROTECTION SPECIALIST yes Dietar y management education, guidance, and counseling (procedure) XRAY HX No xray hist ory XRAY TYPE None xray, typ e Plan of Care No information available. Procedures Code Procedure Name Date Entry Date [id number] SNOMED-CT: 747992961 Hx of Flu Vax SCT-772435172 SNOMED-CT: 656192999 Hx of Pneumovax Given 09/05 CPT-44413 Knee Complete-4 Views SCT-619854880 SNOMED-CT: 313784320 Hx of Flu Vax SCT-248883475 SNOMED-CT: 119517650 Hx of Pneumovax Given 09/05 SCT-224289491 SNOMED-CT: 160742560 Hx of Flu Vax SCT-525299022 SNOMED-CT: 329409930 Hx of Pneumovax Given 09/05 Vital Signs Date Name Value Unit Description BMI (Body Mass Index) 33.63 kg/m2 Body M ass Index [Ratio] BP Diastolic 90 mm[Hg] blood pressure, diastolic - 8462-4 BP Systolic 140 mm[Hg] blood pressure, systolic - 8480-6 Height 72 [in_us] height E&M - 83 02-2 Weight Measured 248 [lb_av] weight E&M - 3141-9 Encounters Code Encounter Date Provider Facility CPT-92659 02814- New Level III To Norris MD [facility], [facility] Social History Concept Description Observation Name Observation Value Units Start Date Alcohol use ETOH USE No Never smoker SMOK STATUS Never smoker Alcohol use ETOH USE No Never smoker SMOK STATUS never smoker
--- OUTSIDE RECORDS SUMMARY | 2020-01-23 10:23 | XMS REPORT | Referral Summary ---
Author Author [facility] Organization [facility], [facility] Address Unknown Phone Unavailable Care Team Providers Care Xray Tech Name Role Phone Rhett Teran PCP Encounter VC Date(s): 01/24/15 - 01/24/15 [facility] [place], [facility] [address] [place] [address] A Discharge Diagnosis: Physical exam Discharge Disposition: -Home or Self Care Attending Physician: Rhett Teran MD Admitting Physician: Rhett Teran MD Vital Signs Most recent to 1 oldest [Reference Range]: Apical Heart Rate 70 bpm [60-100 bpm] (01/24/15 9:26 AM) Blood Pressure 134/76 mmHg [90-140/60-90 mmHg] (01/24/15 9:26 AM) Problem List Condition Effective Dates Status [...] nostril., # 16 g, 3 Refill(s), Pharmacy: [facility] Start Date: 04/22/15 Stop Date: 04/16/16 Status: Ordered glucosamine Oral, 0 Refill(s) Start Date: 01/24/15 Status: Ordered ibuprofen Oral, q6hr, take 1 capsule by oral route every 6 hours as needed. Start Date: 01/19/15 Status: Ordered omega-3 polyunsaturated fatty acids oral capsule 1 caps, Oral, Daily, [place]-3 Start Date: 01/19/15 Status: Ordered omeprazole 40 [...] to 1 oldest [Reference Range]: WBC [4.8-10.8 4.9 10*3/uL 10*3/uL] (01/24/15 10:17 AM) RBC [4.60-6.20 4.98 10*6/uL 10*6/uL] (01/24/15 10:17 AM) Hgb [14.0-18.0 14.8 gm/dL gm/dL] (01/24/15 10:17 AM) Hct [42.0-52.0 %] 42.8 % (01/24/15 10:17 AM) MCV [82.0-99.0 fL] 85.9 fL (01/24/15 10:17 AM) MCH [27.0-32.0 pg] 29.7 pg (01/24/15 10:17 AM) MCHC [32.0-36.0 34.6 gm/dL gm/dL] (01/24/15 10:17 AM) RDW [11.5-14.5 %] 12.6 % (01/24/15 10:17 AM) Platelet [150-400 245 10*3/uL 10*3/uL] (01/24/15 10:17 AM) MPV [8.8-14.8 fL] 9.9 fL (01/24/15:17 AM) Immature 0.2 % Granulocytes (01/24/15:17 AM) [0.0-1.0 %] Neutrophils [51-75 60 % %] (01/24/15:17 AM) Lymphocytes [20-46 29 % %] (01/24/15:17 AM) Monocytes [4-11 %] 9 % (01/24/15: AM) Eosinophils [0-4 %] 2 % (01/24/15: AM) Basophils [0-2 %] 0 % (01/24/15:17 AM) Neutro Absolute 2.94 10*3 [1.90-7.00 10*3] (01/24/15: AM) Lymph Absolute 1.40 10*3 [0.80-3.30 10*3] (01/24/15: AM) Sac Absolute 0.45 10*3 [0.30-1.00 10*3] (01/24/15: AM) Eos Absolute 0.08 10*3 [0.00-0.50 10*3] (01/24/15:17 AM) Baso Absolute 0.02 10*3 [0.00-0.20 10*3] (01/24/15: AM) Chemistry Most recent to 1 oldest [Reference Range]: Sodium Lvl [135-144 139 mEq/L mEq/L] (01/24/15:17 AM) Potassium Lvl 4.5 mEq/L [3.5-5.2 mEq/L] (01/24/15: AM) Chloride [99-111 105 mEq/L mEq/L] (01/24/15:17 AM) CO2 [23-31 mEq/L] 25 mEq/L (01/24/15:17 AM) AGAP [3-20] 9 (01/24/15:17 AM) BUN [8-26 mg/dL] 16 mg/dL (01/24/15 10:17 AM) Glucose Lvl [70-99 93 mg/dL mg/dL] (01/24/15:17 AM) Creatinine Lvl 0.99 mg/dL [0.72-1.25 mg/dL] (01/24/15:17 AM) eGFR [>60 mL/min] >60 mL/min 1 (01/24/15: AM) Calcium Lvl 9.8 mg/dL [8.9-10.5 mg/dL] (01/24/15: AM) Albumin Lvl [3.5-5.0 4.3 gm/dL gm/dL] (01/24/15: AM) Total Protein 6.6 gm/dL [6.2-8.1 gm/dL] (01/24/15: AM) Globulin [1.8-4.0 2.3 gm/dL gm/dL] (01/24/15: AM) ALT [0-55 U/L] 22 U/L (01/24/15: AM) AST [5-34 U/L] 20 U/L (01/24/15: AM) Alk Phos [40-150 82 U/L U/L] (01/24/15: AM) Bili Total [0.2-1.2 1.8 mg/dL mg/dL] *HI* (01/24/15: AM) PSA (wihout Reflex 0.4 ng/mL 2 Free) [0.0-3.5 (01/24/15: AM) ng/mL] Chol [0-199 mg/dL] 166 mg/dL (01/24/15: AM) Trig [0-149 mg/dL] 170 mg/dL *HI* (01/24/15: AM) HDL [40-84 mg/dL] 33 mg/dL *LOW* (01/24/15: AM) LDL [0-130 mg/dL] 99 mg/dL (01/24/15: AM) VLDL Cholesterol 34 mg/dL [0-28 mg/dL] *HI* (01/24/15: AM) Cardiac Risk 5.0 [0.0-5.7] (01/24/15: AM) TSH with Reflex Free 2.08 T4 [0.35-4.94] (01/24/15: AM) 1Result Comment: Multiply eGFR results by 1.21 for race. 2Result Comment: AUA PSA Best Practice Guidelines: Age-Adjusted PSA Values by Ethnic Group Age Range Asians - Caucasians Americans 40-49 0-2.0 0-2.0 0-2.5 50-59 0-3.0 0-4.0 0-3.5 60-69 0-4.0 0-4.5 0-4.5 70-79 0-5.0 0-5.5 0-6.5 Urinalysis Most recent to 1 oldest [Reference Range]: UA Color Yellow (01/24/15 10:31 AM) UA Appear Clear (01/24/15 10:31 AM) UA pH [5.0-8.0] 7.0 (01/24/15 10:31 AM) UA Leuk Est Negative [Negative] (01/24/15 10:31 AM) UA Nitrite Negative [Negative] (01/24/15 10:31 AM) UA Protein Negative [Negative] (01/24/15 10:31 AM) UA Glucose Negative [Negative] (01/24/15 10:31 AM) UA Ketones Negative [Negative] (01/24/15 10:31 AM) UA Urobilinogen 0.2 mg/dL (01/24/15 10:31 AM) UA Bili [Negative] Negative (01/24/15 10:31 AM) UA Blood Negative (01/24/15 10:31 AM) UA Spec Grav 1.020 [1.003-1.030] (01/24/15 10:31 AM) Type Voided (01/24/15 10:31 AM) Immunizations No data available for this section Procedures Procedure Date Related Diagnosis Body Site Collection of venous blood by venipuncture 01/24/15 Hernia1 1See Conversion Document. Social History Social History Type Response Smoking Status Never smoker Assessment and Plan Extracted from: Title: Office Visit Note Author: Rhett Teran MD Date : 01/24/15 Assessment/Plan 1.Physical exam Benign prostatic hyperplasia Palpitation Ordered: Request for Cardiovascular Stress Test Well adult No other changes are needed at this time. Recommend patient continue the same dose of their current medications, and otherwise followup as needed. Medication refills will be provided as needed. Anticipate seeing them back at their next scheduled appointment. Follow-up on lab results when available Treadmill test
--- OUTSIDE RECORDS SUMMARY | 2020-01-23 10:23 | XMS REPORT | Clinical Summary ---
Author Author MD Norris James Bradley Organization [facility], [facility] Address [address] [place] [address] Phone Care Team Providers Care Smelter Charger Name Role Phone MD Norris Bradley W Unavailable [ ] Conditions or Problems Problem Name Problem Code Onset Date Status Entry Date Provider Comment Standard Description Annotate Complex tear of medial meniscus, current injury, left knee, initial encounter 713893343 (SNOMED CT) Active Diana Dickey Te ar of medial meniscus of knee Knee pain, left 11545078 (SNOMED CT) Active Diana Dickey Knee pain Medications Medication Instructions Start Date Stop Date Generic Name NDC Pr ovider OMEPRAZOLE-SODIUM BICARBONATE 40-1100 MG CAPS 1/day OMEPRAZOLE-SODIUM BICARBONATE 40644760270 Mariann Roxy ASPIRIN 81 MG TABS 1/day ASPIRIN 69924500267 Mariann Roxy GLUCOSAMINE HCL 1500 MG TABS 1/day GLUCOSAMINE HCL 42111719438 Mariann Roxy VITAMIN C 500 MG TABS 1/day ASCORBIC ACID 0053 4381218 Mariann Roxy VITAMIN E 400 UNIT TABS VITAMIN E 763639 22910 Mariann Roxy MULTIVITAMINS CAPS MULTIPLE VITAMIN 3848 0012232 Mariann Roxy FISH OIL CAPS OMEGA-3 FATTY ACIDS CAPS 0 8965376109 Mariann Roxy LINSEED OIL OIL FLAXSEED OIL [id number] Mariann Roxy IRON TABS FERROUS SULFATE TABS 705176527 70 Mariann Roxy Medications Administered No information available. Allergies, Adverse Reactions, Alerts Observed no known allergies at Results Date Name Value Unit Range Flag Descriptio n Clinical Summary: Patient Portal Indicat or PATPORTALPIN Y This w ill be used to establish a PIN number for patients to register in the Patient Portal. Clinical Summary: Data Submitted by Janki ent in Portal DEP ROS ENDO Denies [...] No person al history of problems requiring manager primary care MEDICAT LIST Multivitamin 1 a day Fish [...] status NHIS SMOK STATUS Never smoker Toba accounting coordinator smoking status FLIS CARD RSK GRP No cardia c risk group DIET TERRITORY SUPERVISOR yes Dietar y management education, guidance, and counseling (procedure) XRAY HX No xray hist ory XRAY TYPE None xray, typ e Plan of Care No information available. Procedures Code Procedure Name Date Entry Date [id number] SNOMED-CT: 939672814 Hx of Flu Vax SCT-100923219 SNOMED-CT: 795219677 Hx of Pneumovax Given 09/05 CPT-82774 Knee Complete-4 Views SCT-617941744 SNOMED-CT: 889828045 Hx of Flu Vax SCT-926392454 SNOMED-CT: 575807230 Hx of Pneumovax Given 09/05 SCT-171481464 SNOMED-CT: 676611131 Hx of Flu Vax SCT-604822365 SNOMED-CT: 048906668 Hx of Pneumovax Given 09/05 Vital Signs Date Name Value Unit Description BMI (Body Mass Index) 33.63 kg/m2 Body M ass Index [Ratio] BP Diastolic 90 mm[Hg] blood pressure, diastolic - 8462-4 BP Systolic 140 mm[Hg] blood pressure, systolic - 8480-6 Height 72 [in_us] height E&M - 83 02-2 Weight Measured 248 [lb_av] weight E&M - 3141-9 Encounters Code Encounter Date Provider Facility CPT-68298 30798- New Level III To Norris MD [facility], [facility] Social History Concept Description Observation Name Observation Value Units Start Date Alcohol use ETOH USE No Never smoker SMOK STATUS Never smoker Alcohol use ETOH USE No Never smoker SMOK STATUS never smoker
--- OUTSIDE RECORDS SUMMARY | 2020-01-23 10:23 | XMS REPORT | Referral Summary ---
Author Author [facility] Organization [facility] Address Unknown Phone Unavailable Care Team Providers Care Insurance Underwriter Sales Name Role Phone Rhett Teran PCP Encounter VC Date(s): 07/04/16 - 07/04/16 [facility] [address] [place] [address] T S Discharge Disposition: 01-Home or Self Care [...] nostril., # 16 g, 3 Refill(s), Pharmacy: [facility] Start Date: 04/22/15 Stop Date: 04/16/16 Status: Ordered glucosamine Oral, 0 Refill(s) Start Date: 01/24/15 Status: Ordered ibuprofen Oral, q6hr, take 1 capsule by oral route every 6 hours as needed. Start Date: 01/19/15 Status: Ordered omega-3 polyunsaturated fatty acids oral capsule 1 caps, Oral, Daily, [place]-3 Start Date: 01/19/15 Status: Ordered omeprazole 40 mg oral delayed release capsule See Instructions, TAKE 1 CAPSULE DAILY, # 90 caps, 0 Refill(s), Pharmacy: [facility], TAKE 1 CAPSULE DAILY Start Date: 04/18/16 Status: Ordered Vitamin C 500 mg, Oral, Daily, Vitamin C 500 mg capsule, extended release. Start Date: 01/19/15 Status: Ordered vitamin E 400 intl units oral capsule 400 Intl_Units 1 caps, Oral, Daily Start Date: 01/19/15 Status: Ordered Results No data available for this section Immunizations Vaccine Date Refusal Reason tetanus/diphth/pertuss (Tdap) adult/adol 07/04/16 influenza virus vaccine, inactivated 07/04/16 Procedures Procedure Date Related Diagnosis Body Site Hernia1 1See Conversion Document. Social History Social History Type Response Smoking Status Never smoker Assessment and Plan No data available for this section
--- OUTSIDE RECORDS SUMMARY | 2020-01-23 10:24 | XMS REPORT | Clinical Summary ---
Author Author MD Norris James Bradley Organization [facility], [facility] Address [address] [place] [address] Phone Care Team Providers Care Charge Account Authorizer Name Role Phone MD Norris Bradley W Unavailable [ ] Conditions or Problems Problem Name Problem Code Onset Date Status Entry Date Provider Comment Standard Description Annotate Complex tear of medial meniscus, current injury, left knee, initial encounter 062960145 (SNOMED CT) Active Diana Dickey Te ar of medial meniscus of knee Knee pain, left 93921941 (SNOMED CT) Active Diana Dickey Knee pain Medications Medication Instructions Start Date Stop Date Generic Name NDC Pr ovider OMEPRAZOLE-SODIUM BICARBONATE 40-1100 MG CAPS 1/day OMEPRAZOLE-SODIUM BICARBONATE 55369353476 Mariann Roxy ASPIRIN 81 MG TABS 1/day ASPIRIN [id number] Mariann Roxy GLUCOSAMINE HCL 1500 MG TABS 1/day GLUCOSAMINE HCL 33182622292 Mariann Royx VITAMIN C 500 MG TABS 1/day ASCORBIC ACID 0053 4412180 Mariann Roxy VITAMIN E 400 UNIT TABS VITAMIN E 441789 07580 Mariann Roxy MULTIVITAMINS CAPS MULTIPLE VITAMIN 3848 2554315 Mariann Roxy FISH OIL CAPS OMEGA-3 FATTY ACIDS CAPS 6 [id number] Mariann Roxy LINSEED OIL OIL FLAXSEED OIL [id number] Mariann Roxy IRON TABS FERROUS SULFATE TABS 769131483 70 Mariann Roxy Medications Administered No information [...] No person al 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 Procedures Code Procedure Name Date Entry Date [id number] SNOMED-CT: 404394571 Hx of Flu Vax [id number] SNOMED-CT: 031996837 Hx of Pneumovax Given 09/05 CPT-72095 Knee Complete-4 Views [id number] SNOMED-CT: 299947750 Hx of Flu Vax [id number] SNOMED-CT: 258357925 Hx of Pneumovax Given 09/05 [id number] SNOMED-CT: 498365017 Hx of Flu Vax [id number] SNOMED-CT: 010598569 Hx of Pneumovax Given 09/05 Vital Signs Date Name Value Unit Description BMI (Body Mass Index) 33.63 kg/m2 Body M ass Index [Ratio] BP Diastolic 90 mm[Hg] blood pressure, diastolic - 8462-4 BP Systolic 140 mm[Hg] blood pressure, systolic - 8480-6 Height 72 [in_us] height E&M - 83 02-2 Weight Measured 248 [lb_av] weight E&M - 3141-9 Encounters Code Encounter Date Provider Facility CPT-50720 93533- New Level III To Norris MD [facility], [facility] Social History Concept Description Observation Name Observation Value Units Start Date Alcohol use ETOH USE No Never smoker SMOK STATUS Never smoker Alcohol use ETOH USE No Never smoker SMOK STATUS never smoker
--- OUTSIDE RECORDS SUMMARY | 2020-01-23 10:24 | XMS REPORT | Clinical Summary ---
Author Author Pollo San Organization [facility], [facility] Address [address] [place] [address] Phone Care Team Providers Care Executive Sales Manager Name Role Phone Lweis San Unavailable Conditions or Problems No information available. Medications No information available. Medications Administered No information available. Allergies, Adverse Reactions, Alerts No information available. Results Date Name Value Unit Range Flag Descriptio n Clinical Summary: Patient Portal Indicat or PATPORTALPIN Y This w ill be used to establish a PIN number for patients to register in the Patient Portal. Clinical Summary: Data Submitted by Janki mcnair in Portal ALCDRUG No Abused dr plascencia or alcohol? 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 IAIS FH ANEST CMP No family hx of anesthesia complications FATHER A/D father o f patient is alive or MOTHER A/D Alive mother o f patient is alive or LASTPNEUMVAX within the last 2 years pneumovax (pneumonia vaccine), last received FLU VAX within the last 6 months influenza immunization (Flu Vax) has been administered EXERTSOBHX No exertion al shortness of breath, hx of ASTH BREATH No Asthma Shortness of breath symptoms CARD RSK GRP No cardia c risk group CARD RF CMTS No Cardia c risk factor comments CHF TYPE No congestiv e heart failure (CHF), type CHF SYMPTOMS No conges tive heart failure symptoms PMH OTHER Denies Other Problems problems, other, hx of PMH GUPROBS Denies Urinary problems genitourinary disorder, hx of PMH HEPTITIS Denies hepatic problems hepatitis, hx of PMH GERD Denies gastrointestinal problems gastroesophageal reflux disease (GERD), hx of PMH HEMATLGC Denies hematologic problems hematologic disease, hx of PULMPMH Denies respiratory problems Pulmonary Past Medical History PMH CANCER Denies History of Cancer cancer, hx of PMH-ENDOCOM Denies Endocrine problems endocrinology, past medical history, comments PMH NPSYCH Denies Mental Health problems neuropsychological disease, hx of PMH NEURO Denies Neurological problems past medical history, neurology PMH RHEUM Denies Rheumatologic problems Past Medical History Rheumatology XRAY HX No xray hist ory XRAY TYPE None xray, typ e PMH ABD SURG Yes Past M edical Hx of Abdominal Surgery PMH URO SX No Past Med ical Hx of Urological Surgery CARDIO SURG No cardiov ascular surgery, hx of HXENTSURG No History o f ENT surgery 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 No gynecol ogic surgery, hx of HXMUSCSURG No History of musculoskeletal surgery DEP ROS ENDO Denies endocrine symptoms data [...] person al history of problems requiring manager medicare marketing INJURY HX No past inju ry, hx of CHIEF CMPL#2 Left Knee pain c hief complaint #2 VISIT REASON New Problem reas on for visit REF SOURCE Another Patient re ferral source MEDICAT LIST Multivitamin 1 a day Fish [...] day Data entered by patient, medication list Plan of Care Type Date Detail Appointment 09:45 AM To Norris MD , [address], [place], [address], Procedures No information available. Vital Signs No information available. Encounters No information available. Social History Concept Description Observation Name Observation Value Units Start Date Alcohol use ETOH USE No Never smoker SMOK STATUS never smoker
--- OUTSIDE RECORDS SUMMARY | 2020-01-23 10:24 | XMS REPORT | Clinical Summary ---
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 Vital Signs No information available. Encounters No information available. Social History Concept Description Observation Name Observation Value Units Start Date Alcohol use ETOH USE No Never smoker SMOK STATUS never smoker
--- OUTSIDE RECORDS SUMMARY | 2020-01-23 10:24 | XMS REPORT | Continuity of Care Document ---
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 Annual physical exam - *Routine Benign hypertrophy of prostate - *Chronic GERD - *Chronic Family history of prostate cancer - *Stabl e Sinusitis, Acute - *Acute Conjunctivitis, unspecified - *Acute Family History Family Member Diagnosis Age At Onset Status Father (Unknown) Cancer - prostate Yes Social History Social History Element Description Quantity Unknown Allergies, Adverse Reactions, Alerts Substance Reaction Severity Status Unknown Medications Medication Instructions Dosage Effective Dates (start - sto p) Status fluticasone 50 mcg/actuation Nasal [place], Susp inhale 1 spray (50MCG) by intranasal route every day in each nostril 50 MCG - Active Aspir-81 81 mg tablet,delayed release take 1 tablet (8 1MG) by oral route every day 81 MG - Active Centrum Silver tablet take one tablet by mouth dialy N - Active IRON (unknown strength) take 65 mg by mouth daily - Active Vitamin C 500 mg capsule,extended release take one tablet by jorge luis th daily - Active OMEGA-3 (unknown strength) take one tablet by mouth daily - Active FLAXSEED OIL (unknown strength) take one tablet by mouth daily - Active vitamin E 400 unit capsule take one tablet by mout daily - Active CALCIO PATRICK (unknown strength) take one tablet by mouth daily - Active GLUCOSAMINE SULFATE (unknown strength) take one tablet by mouth lul ly - Active GARLIC (unknown strength) take one tablet by mouth daily - Active SUDAFED 12 HOUR (unknown strength) take 1 tablet by oral rou te every 12 hours - Active IBUPROFEN (unknown strength) take 1 capsule by oral ro [place] every 6 hours as needed - Active omeprazole 40 mg capsule,delayed release Take 1 tablet by mouth every day. - Active Immunizations Vaccine Date Status Comments Unknown Results Test Name Date and Time Measure Units Reference Range Abnormal F lag Comments Panel Description: CBC WBC 09:05:00 4.7 K/uL 4.8-10.8 L RBC 09:05:00 5.13 M/uL 4.60-6.20 HGB 09:05:00 14.9 g/dl 14.0-18.0 HCT 09:05:00 42.7 % 42.0-52.0 MCV 09:05:00 83.2 fL 82.0-99.0 MCH 09:05:00 29.0 pg 27.0-32.0 MCHC 09:05:00 34.9 g/dL 32.0-36.0 RDW 09:05:00 12.6 % 11.5-14.5 MPV 09:05:00 10.3 fL 8.8-14.8 Platelet Count 09:05:00 249 K/uL 150-400 Immature Granulocytes 09:05:00 0.0 % 0.0-1.0 Absolute Neutrophils 09:05:00 2.64 THOUS 1.90-7.0 0 Absolute Lymphocytes 09:05:00 1.45 THOUS 0.80-3.3 0 Absolute Monocytes 09:05:00 0.44 THOUS 0.30-1.00 Absolute Eosinophils 09:05:00 0.10 THOUS 0.00-0.5 0 Absolute Basophils 09:05:00 0.03 THOUS 0.00-0.20 Neutrophils 09:05:00 57 % 51-75 Lymphocytes 09:05:00 31 % 20-46 Monocytes 09:05:00 9 % 4-11 Eosinophils 09:05:00 2 % 0-4 Basophils 09:05:00 1 % 0-2 Testing performed at [facility] [address] J[address] Fitter Yovanny Antonio MD Panel Description: Chemistry Profile Glucose 09:05:00 96 mg/dL 70-99 BUN 09:05:00 17 mg/dL 8-26 Creatinine 09:05:00 1.06 mg/dL 0.72-1.25 Calcium 09:05:00 9.5 mg/dL 8.9-10.5 Sodium 09:05:00 136 mEq/L 135-144 Potassium 09:05:00 4.3 mEq/L 3.5-5.2 Chloride 09:05:00 105 mEq/L 99-111 CO2 09:05:00 27 mEq/L 23-31 Albumin 09:05:00 4.2 g/dL 3.5-5.0 Bilirubin Total 09:05:00 1.6 mg/dL 0.2-1.2 H Alkaline Phosphatase 09:05:00 76 U/L 40-150 Protein 09:05:00 6.5 g/dL 6.4-8.3 ALT (SGPT) 09:05:00 20 U/L 0-55 AST (SGOT) 09:05:00 19 U/L 5-34 Anion Gap 09:05:00 4 3-20 Globulin 09:05:00 2.3 g/dL 1.8-4.0 Testing performed at [facility] [address] [place] [address] Jig Fitter Yovanny Antonio MD Panel Description: Lipid Profile-[facility] Cholesterol 09:05:00 183 mg/dL 0-199 Triglycerides 09:05:00 151 mg/dL 0-149 H HDL Cholesterol 09:05:00 30 mg/dL 40-84 L LDL Cholesterol 09:05:00 123 mg/dL 0-130 VLDL Cholesterol 09:05:00 30 mg/dL 0-28 H Cardiac Risk 09:05:00 6.1 0.0-5.7 H Testing performed at [facility] [address] [address] Jig Fitter Yovanny Antonio MD Panel Description: Non-HDL Cholesterol-A [place] Non-HDL Cholesterol 09:05:00 153 mg/dL 0-159 Testing performed at [facility] [address] [place] [address] Jig Fitter Yovanny Antonio MD Panel Description: TSH-[facility] TSH 09:05:00 3.12 uIU/mL 0.35-4.94 Testing performed at [facility] [address] [place] [address] Jig Fitter Yovanny Antonio MD Panel Description: EGFR-[facility] eGFR 09:05:00 >60 mL/min >60 Multiply eGFR results by 1.21 for race.Testing performed at [facility] [address] [address] Jig Fitter Yovanny Antonio MD Panel Description: Prostatic Specific An tigen-[facility] PSA 09:05:00 0.2 ng/mL 0.0-3.5 AUA PSA Best Practice Guidelines: Age-Adjusted PSA Values by Ethnic GroupAge Range Asians - Caucasians [id number] 0-2.0 0-2.0 0-2.550-59 0-3.0 0-4.0 0-3.560-69 0-4.0 0-4.5 0-4.570-79 0-5.0 0-5.5 0- 6.5Testing performed at [facility] [address] [place] [address] Jig Fitter Yovanny Antonio MD Panel Description: Urinalysis with Refle x Microscopic Appearance 09:05:00 Clear Color 09:05:00 Yellow Glucose, Urine 09:05:00 Negative Negative Ketones 09:05:00 Negative Negative Blood 09:05:00 Negative Negative Protein 09:05:00 Negative Negative Nitrites 09:05:00 Negative Negative Bilirubin 09:05:00 Negative Negative Specific [place] 09:05:00 1.005 1.003-1.03 pH 09:05:00 6.5 5.0-8.0 Urobilinogen 09:05:00 0.2 mg/dL <1.0 Leukocyte Esterase 09:05:00 Negative Negative Testing performed at [facility] [address] [facility] [address] Jig Fitter Yovanny Antonio MD Vital Signs Date / Time: Height Weight Pulse Rate Blood Pressure Temperat ure /08:38:00 72.00 in 242.00 lbs 65 /min 120/62 mm[Hg] Procedures Procedure Date Unknown Encounters Encounter Location Date Patient Visit [facility] Patient Visit [facility] Patient Visit [facility] Patient Visit [facility] Cesar Advance Directives Directive Effective Date Unknown
[2020-01-23] MEDS ORDERED: LISI-556 PO (10:35)
[2020-01-23] MEDS ORDERED: ASPI-808 PO (10:35)
[2020-01-23] MEDS ORDERED: ATOR80TA76 PO (10:35)
[2020-01-23] MEDS ORDERED: MULT-593 PO (10:35)
[2020-01-23] MEDS ORDERED: ENOX40DI13 SQ (10:35)
[2020-01-23] MEDS ORDERED: OMEG1CAP58 PO (10:35)
[2020-01-23] MEDS ORDERED: CLOP75TA69 PO (10:35)
[2020-01-23 10:59] VITALS: BP 133/78
[2020-01-23 11:00] VITALS: BP 137/75
--- NOTE | 2020-01-23 12:28 | PM&R Post Admission Assessment ---
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 Apparently Dr Cabrera evaluated the patient and dx left ICA with collateralization present. Patient was placed on statin and BP meds and ASA. EKG revealed RBBB. ECHO revealed EF 60%. Patient retired on [employer] and does not smoke but does drink 2 drinks a day. Patient is at high risk for falls. Images revealed an old basal ganglia stroke that he does not recall ever having any type of stroke event before. Patient has BMI of 42 and appears to have risk for CHERELLE. He takes pride in his excellent health all of his life which is really reassuring but he appears to have more medical issues that just have not been diagnosed since he has never been to a doctor. Unsure his compliance at [facility] will be maintained. Past Ruizzyq-Kslzfj-Qhanoa Hx Past Med/Social Hx: Reviewed Nursing Past Med/Soc Hx, Reviewed and Corrections made Patient Social History Marrital Status: Employed/Student: retired Alcohol Use: Regular Use Smoking Status: Never a Smoker Recent Foreign Travel: No Contact w/other who traveled: No Recent Hopitalizations: Yes (TRANSFER FROM [place]) Recent Infectious Disease Expo: No Past Medical History Surgeries: Orthopedic RBBB on EKG [place] admit 01/20/20 Neurological: Stroke (01/20/20) PM&R Allergy/Meds/Data Review Allergies Coded Allergies: No Known Allergies (Verified Allergy, Unknown, 01/23/20) Home Medications Scheduled Aspirin (Aspirin), 325 MG PO DAILY, (Reported) Atorvastatin Calcium (Atorvastatin Calcium), 80 MG PO HS, (Reported) Clopidogrel Bisulfate (Plavix), 75 MG PO DAILY, (Reported) Enoxaparin Sodium (Lovenox), 40 MG SQ DAILY, (Reported) Lisinopril (Lisinopril), 5 MG PO DAILY, (Reported) Multivitamin with Minerals (Multiple Vitamin), 1 EACH PO DAILY, (Reported) Sargent-3 Fatty Acids/Fish Oil (Sargent 3 1,000 mg Softgel), 2 EACH PO DAILY, (Reported) Current Medications Current Medications Reviewed Review of Systems Constitutional: see HPI, weakness EENTM: no symptoms reported Respiratory: no symptoms reported Cardiovascular: no symptoms reported Gastrointestinal: no symptoms reported Genitourinary: no symptoms reported Musculoskeletal: no symptoms reported Skin: no symptoms reported Psychiatric/Neurological: Weakness, Other (right sided weak) Physical Exam Physical Exam Vital Signs Vital Signs - First Documented 01/23/20 10:59 Temp 37.0 Pulse 74 Resp 16 B/P (MAP) 133/78 (96) Pulse Ox 95 O2 Delivery Room Air Capillary Refill : Height, Weight, BMI Height: '" Weight: lbs. oz. kg; 93.31 BMI Method: General Appearance: No Apparent Distress, WD/WN, Obese Eyes: Bilateral Eye Normal Inspection, Bilateral Eye PERRL HEENT: PERRL/EOMI, Normal ENT Inspection, Pharynx Normal Neck: Full Range of Motion, Normal Inspection, Non Tender, Supple, Carotid Bruit Respiratory: Chest Non Tender, Lungs Clear, Normal Breath Sounds, No Accessory Muscle Use, No Respiratory Distress Cardiovascular: Regular Rate, Rhythm, No Edema, No Gallop, No JVD, No Murmur, Normal Peripheral Pulses Gastrointestinal: Normal Bowel Sounds, No Organomegaly, No Pulsatile Mass, Non Tender, Soft Back: Normal Inspection, No CVA Tenderness, No Vertebral Tenderness Extremity: Normal Capillary Refill, Normal Inspection, Normal Range of Motion (right arm 3/5 ), Non Tender, No Calf Tenderness, No Pedal Edema Neurologic/Psychiatric: Alert, Oriented x3, No Motor/Sensory Deficits, Normal Mood/Affect, clearing inspector II-XII Norm as Tested, Abnormal Gait, Motor Weakness (right arm and right leg weakness 3/5) Skin: Normal Color, Warm/Dry Lymphatic: No Adenopathy PM&R Medical Assessment & Plan REHAB/MEDICAL ASSESSMENT AND PLAN: REHAB IMPAIRMENT GROUP: CVA ETIOLOGIC DIAGNOSIS: CVA The comorbidities that impact the patients function and/or functional outcome by: denial of undiagnosed medical issues since he has never seen a doctor REHAB PLAN: The patient is being admitted to our comprehensive inpatient rehabilitation facility and can tolerate the intensity of service consisting of at least: 180 minutes of therapy a day, 5 out of 7 days a week Rehab treatment will consist of: PT OT will focus on regaining right arm and right leg strength in order to continue recovery senior care after DC to obtain a full recovery The patient/family has a good understanding of our discharge process and will benefit from an interdisciplinary inpatient rehabilitation program. The patient has potential to make improvement and is in need of at least two of the following multidisciplinary therapies including but not limited to physical, occupational, speech, and prosthetics and orthotics. Additionally the patient will need services from respiratory, nutritional services, wound care, psychology, etc. (Customize this to each patient). Given the patients complex condition and risk of further medical complications, rehabilitation services cannot be safely or effectively provided at a lower level of care such as a senior living facility. BARRIERS TO DISCHARGE: Denial of medical issues ESTIMATED LOS: 7 days DISPOSITION: Home RELEVANT CHANGES SINCE PREADMISSION SCREENING: I have compared the patients medical and functional status at the time of the preadmission screening and there are: no changes PROGNOSIS: Good REHABILITATION GOALS: 1. 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 By signing this document, I acknowledge that I have personally performed a full physical examination on this patient within 24 hours of admission to this inpatient rehabilitation facility and have determined the patient to be able to tolerate the above course of treatment at an intensive level for a reasonable period of time. I will be completing a detailed individualized Plan of Care for this patient by day #4 of the patients stay based upon the Preadmission Screen, the Post-Admission Evaluation, and the therapy evaluations. Admission Dx/Comorbidities: (1) Left thalamic infarction ICD Codes: I63.9 - Cerebral infarction, unspecified (2) Basal ganglia stroke ICD Codes: I63.9 - Cerebral infarction, unspecified (3) BMI 40.0-44.9, adult ICD Codes: Z68.41 - Body mass index (BMI) 40.0-44.9, adult (4) RBBB ICD Codes: I45.10 - Unspecified right bundle-branch block (5) Internal carotid artery stenosis ICD Codes: I65.29 - Occlusion and stenosis of unspecified carotid artery (6) Hypertension ICD Codes: I10 - Essential (primary) hypertension (7) Alcohol use ICD Codes: Z72.89 - Other problems related to lifestyle (8) DVT prophylaxis ICD Codes: Z29.9 - Encounter for prophylactic measures, unspecified (9) Hyperlipemia ICD Codes: E78.5 - Hyperlipidemia, unspecified (10) CVA (cerebral vascular accident) ICD Codes: I63.9 - Cerebral infarction, unspecified Assessment/Plan Assessment and Plan Assess & Plan/Chief Complaint Assessment: Left thalamic CVA presumed to have occurred 01/19/20 due to right foot drop and fall and drooling HTN new dx HLP new dx Increased BMI RBBB on EKG Old basal ganglia CVA Left ICA stenosis Alcohol regular use Denial of medical issues undiagnosed since never has seen a doctor and 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
[2020-01-23] MEDS ORDERED: BISACODYL 10 MG SUPP (DULCOLAX) PR PRN (12:30)
[2020-01-23] MEDS ORDERED: ONDANSETRON 4 MG (ZOFRAN) ORAL DISSOLVE TAB PO PRN (12:30)
[2020-01-23] MEDS ORDERED: DOCUSATE SODIUM 100 MG (COLACE) CAP PO PRN (12:30)
[2020-01-23] MEDS ORDERED: guaiFENesin/CODEINE (ROBITUSSIN AC) 10ML UDC PO PRN (12:30)
[2020-01-23] MEDS ORDERED: ENOXAPARIN 40 MG/0.4 ML (LOVENOX) SYR SC SCH (12:30)
[2020-01-23] MEDS ORDERED: ALPRAZolam 0.25 MG (XANAX) TAB PO PRN (12:30)
[2020-01-23] MEDS ORDERED: LOPERAMIDE 2 MG (IMODIUM) TABLET PO PRN (12:30)
[2020-01-23] MEDS ORDERED: FLEET ENEMA ADULT 1 EA BTL PR PRN (12:30)
[2020-01-23] MEDS ORDERED: ACETAMINOPHEN 500 MG TAB (TYLENOL) PO PRN (12:30)
[2020-01-23] MEDS ORDERED: LACTULOSE SYRUP 10GM/15ML (ENULOSE) 30ML UDC PO PRN (12:30)
[2020-01-23] MEDS ORDERED: diphenhydrAMINE 25 MG TAB (BENADRYL) PO PRN (12:30)
[2020-01-23] MEDS ORDERED: CALCIUM CARBONATE 500 MG (TUMS) TAB.CHEW PO PRN (12:30)
[2020-01-23] MEDS ORDERED: MELATONIN 3 MG TABLET PO PRN (12:30)
[2020-01-23] MEDS ORDERED: ACETAMINOPHEN 325 MG TABLET PO PRN (12:45)
--- NOTE | 2020-01-23 13:04 | Physical Therapy Evaluation ---
PT Evaluation-General Medical Diagnosis Admission Date Jan 23, 2020 at 10:18 Medical Diagnosis: CVA Onset Date: Jan 18, 2020 Therapy Diagnosis Therapy Diagnosis: Impaired balance and gait instability Precautions Precautions/Isolations: Fall Prevention, Standard Precautions Weight Bear Status Right Lower Extremity: Right Full Weight Bearing Left Lower Extremity: Left Full Weight Bearing Referral Physician: Daisy Teran DO Reason for Referral: Evaluation/Treatment Medical History Pertinent Medical History: CVA Additional Medical History No prior medical history or illness. Current History 01/18/20, pt stood up and fell down. He was able get up (I) and went to bed. The following day he had a similar fall when standing up and was taken by EMS to [place]. He had (R) UE/LE weakness, slurred speech, and facial droop. All of these issues are resolving rapidly with motor control restored to all areas. He was found to have a 99% blockage of the (L) carotid. Reviewed History: Yes Social History Home: Single Level Current Living Status: Significant Other Entry Into Home: Stairs With Railing PT Steps Into Home: 3 Prior Prior Level of Function SCALE: Activities may be completed with or without assistive devices. 1-Efowtknhjq-juekmin completes the activity by him/herself with no assistance from a helper. 5-Set-up or Clean-up Assistance-helper sets up or cleans up; patient completes activity. [place] assists only prior to or following the activity. 4-Supervision or Touching Assistance-helper provides verbal cues and/or touching/steadying and/or contact guard assistance as patient completes activity. Assistance may be provided throughout the activity or intermittently. 3-Partial/Moderate Assistance-helper does LESS THAN HALF the effort. [place] lifts, holds or supports trunk or limbs, but provides less than half the effort. 2-Substantial/Maximal Assistance-helper does MORE THAN HALF the effort. [place] lifts or holds trunk or limbs and provides more than half the effort. 9-Rnyrqjuei-bcvtzl does ALL the effort. Patient does none of the effort to complete the activity. Or, the assistance of 2 or more helpers is required for the patient to complete the activity. If activity was not attempted, code reason: 7-Patient Refused. 9-Not Applicable-not attempted and the patient did not perform the activity before the current illness, exacerbation or injury. 10-Not Attempted due to Environmental Limitations-(lack of equipment, weather restraints, etc.). 88-Not Attempted due to Medical Conditions or Safety Concerns. Bed Mobility: 6 Transfers (B,C,W/C): 6 Gait: 6 Stairs: 6 Indoor Mobility (Ambulation): Independent Stairs: Independent Prior Devices Use: None PT Evaluation-Current Subjective Pt has no complaints at this time. He is here to improve his (R) lower extremity strength and improve balance/stability during ambulation and transfers. Objective Patient Orientation: Person, Place, Time, Situation ROM/Strength ROM Upper Extremities WFL ROM Lower Extremities WFL Strength Upper Extremities No focal deficits noted with UE strength testing. Strength Lower Extremities 4-/5 (R) anterior tibials, peroneals, quadriceps, and gluteus medius. All other MMT 5/5. Integumentary/Posture Bowel Incontinence: No Bladder Incontinence: No Neuromuscular (Tone, Coordination, Reflexes) Normal reflexes and sensation in (B) UEs and LEs. Sensory Vision: Functional Hearing: Functional Sensation Right Upper Extremit: Intact Sensation Left Upper Extremity: Intact Sensation Right Lower Extremit: Impaired Sensation Left Lower Extremity: Intact Sensation Lower Extremities Altered dermal sensation over the 5th metatarsal. Transfers Roll Left to Right (QC): 6 Sit to Lying (QC): 6 Lying to Sitting/Side of Bed(Q: 6 Sit to Stand (QC): 5 Chair/Yvx-jo-Azmpm Xfer(QC): 5 Toilet Transfer (QC): 5 Car Transfer (QC): 5 Gait Does the Patient Walk?: Yes Mode of Locomotion: Walk Anticipated Mode of Locomotion: Walk Walk 10 feet (QC): 5 Walk 50 ft with 2 Turns(QC): 5 Walk 150 ft (QC): 5 Walking 10ft/uneven surface-QC: 5 Distance: 200ft Gait Assistive Device: FWW Comments/Gait Description Able to ambulate short distances without AD, with (R) ankle instability noted and poor proprioception of the (R) LE. Wheelchair Training Does the Pt Use a Wheelchair?: No Wheel 50 ft with 2 turns (QC): 9 Wheel 150 ft (QC): 9 Stairs #of Steps: 1 1 Step (curb) (QC): 5 4 Steps (QC): 88 12 Steps (QC): 88 Walking Assistive Device: Walker Balance Sitting Static: Normal Sitting Dynamic: Normal Standing Static: Normal Standing Dynamic: Fair Picking up an Object (QC): 3 Special Test Comments (R) LE proprioception inhibits safe performance without the AD. Assessment/Needs Pt to benefit from PT to address activity tolerance, (R) LE strength, and (R) LE proprioceptive/balance training. Rehab Potential: Good PT Top Edge Beveler Goals Top Edge Beveler Goals PT Group Home Goals Time Frame: Feb 06, 2020 Roll Left & Right (QC): 6 Sit to Lying (QC): 6 Lying-Sitting on Side/Bed(QC): 6 Sit to Stand (QC): 6 Chair/Tla-gf-Gvbqa Xfer(QC): 6 Toilet Transfer (QC): 6 Car Transfer (QC): 6 Does the Patient Walk: Yes Walk 10 feet (QC): 6 Walk 50ft with 2 Turns (QC): 6 Walk 150 ft (QC): 6 Walking 10ft on Uneven Surface: 6 1 Step (curb) (QC): 6 4 Steps (QC): 6 12 Steps (QC): 6 Picking up an Object (QC): 6 Does the Pt use WC or Scooter?: No Wheel 50 feet with 2 turns (QC: 9 Type: N/A Wheel 150 feet: 9 Type: N/A PT Plan Problem List Problem List: Activity Tolerance, Functional Strength, Balance, Gait Treatment/Plan Treatment Plan: Continue Plan of Care Treatment Plan: Concurrent Therapy, Education, Functional Activity Mari, Functional Strength, Gait, Safety, Therapeutic Exercise Treatment Duration: Feb 06, 2020 Frequency: At least 5 of 7 days/Wk (IRF) Estimated Hrs Per Day: 1.5 hours per day Patient and/or Family Agrees t: Yes Time/GCodes Time In: 1110 Time Out: 1155 Total Billed Treatment Time: 45 Total Billed Treatment 1, evmodc 15, ex 15, gt 15 LENA MONTERO PT Jan 23, 2020 13:03
[2020-01-23 16:30] VITALS: BP 122/78
[2020-01-23] MEDS: SENNA W/DOCUSATE (SENOKOT S) TABLET PO SCH (21:28)
[2020-01-23] MEDS: polyethylene glycoL POWDER 17 GM (MIRALAX) PACK PO SCH (21:28)
[2020-01-24 04:54] LABS: BASOPHILS % (AUTO) 1 % (0-10); EOSINOPHILS # (AUTO) 0.4 10^3/uL (0.0-0.3); EOSINOPHILS % (AUTO) 5 % (0-10); HEMATOCRIT 45 % (40-54); HEMOGLOBIN 15.9 G/DL (13.3-17.7); LYMPHOCYTES # (AUTO) 2.4 X 10^3 (1.0-4.0); LYMPHOCYTES % (AUTO) 30 % (12-44); MEAN CORPUSCULAR HEMOGLOBIN 32 PG (25-34); MEAN CORPUSCULAR HGB CONC 35 G/DL (32-36); MEAN CORPUSCULAR VOLUME 92 FL (80-99); MEAN PLATELET VOLUME 9.2 FL (7.4-10.4); MONOCYTES # (AUTO) 0.9 X 10^3 (0.0-1.0); MONOCYTES % (AUTO) 11 % (0-12); NEUTROPHILS # (AUTO) 4.3 X 10^3 (1.8-7.8); NEUTROPHILS % (AUTO) 54 % (42-75); PLATELET COUNT 225 10^3/uL (130-400); WHITE BLOOD COUNT 8.1 10^3/uL (4.3-11.0)
[2020-01-24 05:12] LABS: ALBUMIN 3.8 GM/DL (3.2-4.5)
[2020-01-24 05:13] LABS: CHLORIDE 106 MMOL/L (98-107); SODIUM 138 MMOL/L (135-145)
[2020-01-24 05:14] LABS: CALCIUM 8.7 MG/DL (8.5-10.1)
[2020-01-24 05:15] LABS: GLUCOSE 105 MG/DL (70-105); TOTAL PROTEIN 6.6 GM/DL (6.4-8.2)
[2020-01-24 05:16] LABS: CARBON DIOXIDE 22 MMOL/L (21-32)
[2020-01-24 05:17] LABS: BILIRUBIN,TOTAL 0.8 MG/DL (0.1-1.0)
[2020-01-24 05:19] LABS: ALKALINE PHOSPHATASE 55 U/L (40-136); CREATININE SERUM 0.75 MG/DL (0.60-1.30); GFR ESTIMATED > 60
[2020-01-24 05:20] LABS: BUN/CREATININE RATIO 17
[2020-01-24 05:22] LABS: ALANINE AMINOTRANSFERASE 74 U/L (0-55)
[2020-01-24 06:00] VITALS: BP 122/78
[2020-01-24] MEDS: MULTIVIT W/MINERALS TAB (THERAGRAN M) PO SCH (06:15)
[2020-01-24] MEDS: CLOPIDOGREL 75 MG (PLAVIX) TABLET PO SCH (08:07)
[2020-01-24] MEDS: OMEGA 3 (FISH OIL) 1000 MG CAP PO SCH (08:07)
[2020-01-24] MEDS: ASPIRIN 325 MG (5 GR) TABLET PO SCH (08:07)
[2020-01-24] MEDS: polyethylene glycoL POWDER 17 GM (MIRALAX) PACK PO SCH ×2 (08:08→21:06)
[2020-01-24] MEDS: SENNA W/DOCUSATE (SENOKOT S) TABLET PO SCH ×2 (08:08→21:06)
[2020-01-24] MEDS: ENOXAPARIN 40 MG/0.4 ML (LOVENOX) SYR SQ SCH ×2 (08:17→21:09)
[2020-01-24 08:19] VITALS: BP 153/72
[2020-01-24] MEDS ORDERED: lisINopril 5 MG (PRINIVIL) TABLET PO SCH (09:00)
[2020-01-24] MEDS ORDERED: ENOXAPARIN 40 MG/0.4 ML (LOVENOX) SYR SQ SCH (09:00)
--- NOTE | 2020-01-24 12:12 | PM&R Progress Note ---
Subjective HPI/CC On Admission Date Seen by Provider: Jan 24, 2020 Time Seen by Provider: 12:15 Subjective/Events-last exam Drags right leg if he doesn't focus when walking with a walker Looking forward to working with therapy tomorrow BP remains stable ALT elevated c/w ETOH heave use and likely DA SILVA Patient appears to be in significant denial about other medical issues that I suspect he has Will enable PCP to address all of these with him Checked meds and labs Conferred with RN Reviewed therapy notes Review of Systems General: Fatigue Neurological: Weakness, Numbness, Incoordination Objective Exam Vital Signs Vital Signs Date Time Temp Pulse Resp B/P (MAP) Pulse Ox O2 Delivery O2 Flow Rate FiO2 01/24/20 09:33 Room Air 01/24/20 08:19 74 153/72 (99) 01/24/20 06:00 36.9 18 96 Capillary Refill : Less Than 3 Seconds General Appearance: No Apparent Distress, WD/WN, Obese HEENT: PERRL/EOMI, Normal ENT Inspection, Pharynx Normal Neck: Full Range of Motion, Normal Inspection, Non Tender, Supple, Carotid Bruit Respiratory: Chest Non Tender, Lungs Clear, Normal Breath Sounds, No Accessory Muscle Use, No Respiratory Distress Cardiovascular: Regular Rate, Rhythm, No Edema, No Gallop, No JVD, No Murmur, Normal Peripheral Pulses Gastrointestinal: Normal Bowel Sounds, No Organomegaly, No Pulsatile Mass, Non Tender, Soft Back: Normal Inspection, No CVA Tenderness, No Vertebral Tenderness Extremity: Normal Capillary Refill, Normal Inspection, Normal Range of Motion (right arm 3/5 ), Non Tender, No Calf Tenderness, No Pedal Edema Neurologic/Psychiatric: Alert, Oriented x3, No Motor/Sensory Deficits, Normal 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 FIM Transfers Therapy Code Descriptions/Definitions Functional [place] Measure: 0=Not Assessed/NA 4=Minimal Assistance 1=Total Assistance 5=Supervision or Setup 2=Maximal Assistance 6=Modified [place] 3=Moderate Assistance 7=Complete IndependenceSCALE: Activities may be completed with or without assistive devices. 6-Xoloqjvjbk-gxejpcz completes the activity by him/herself with no assistance from a helper. 5-Set-up or Clean-up Assistance-helper sets up or cleans up; patient completes activity. [place] assists only prior to or following the activity. 4-Supervision or Touching Assistance-helper provides verbal cues and/or touching/steadying and/or contact guard assistance as patient completes activity. Assistance may be provided throughout the activity or intermittently. 3-Partial/Moderate Assistance-helper does LESS THAN HALF the effort. [place] lifts, holds or supports trunk or limbs, but provides less than half the effort. 2-Substantial/Maximal Assistance-helper does MORE THAN HALF the effort. [place] lifts or holds trunk or limbs and provides more than half the effort. 5-Vmqdiepqj-ecabvi does ALL the effort. Patient does none of the effort to complete the activity. Or, the assistance of 2 or more helpers is required for the patient to complete the activity. If activity was not attempted, code reason: 7-Patient Refused. 9-Not Applicable-not attempted and the patient did not perform the activity before the current illness, exacerbation or injury. 10-Not Attempted due to Environmental Limitations-(lack of equipment, weather restraints, etc.). 88-Not Attempted due to Medical Conditions or Safety Concerns. Roll Left to Right (QC): 6 Sit to Lying (QC): 6 Sit to Stand (QC): 5 Chair/Bzj-ob-Ngott Xfer(QC): 5 Car Transfer (QC): 5 Gait Training Does the Patient Walk?: Yes Walk 10 feet (QC): 5 Walk 50 ft with 2 Turns(QC): 5 Walk 150 ft (QC): 5 Walking 10ft/uneven surface-QC: 5 Gait Assistive Device: FWW Wheelchair Training Does the Pt Use a Wheelchair?: No Wheel 50 ft with 2 turns (QC): 9 Wheel 150 ft (QC): 9 Stair Training #of Steps: 1 1 Step (curb) (QC): 5 4 Steps (QC): 88 12 Steps (QC): 88 Balance Picking up an Object (QC): 3 Assessment/Plan Assessment and Plan Assess & Plan/Chief Complaint Assessment: Left thalamic CVA presumed to have occurred 01/19/20 due to right foot drop and fall and drooling HTN new dx HLP new dx Increased BMI RBBB on EKG 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
[2020-01-24 17:14] VITALS: BP 144/75
--- NOTE | 2020-01-24 19:35 | NUR ---
WALKED IN THE HALLS WITH THIS RN USING A GAIT BELT AND FWW FOR SAFETY. TOLERATED WELL.
[2020-01-25] MEDS: MULTIVIT W/MINERALS TAB (THERAGRAN M) PO SCH (05:51)
[2020-01-25 06:00] VITALS: BP 121/65
[2020-01-25 08:00] VITALS: BP 132/80
--- NOTE | 2020-01-25 08:00 | NUR ---
PLEASANT AND COOPERATIVE. DENIES DIFFICULTY IN SPEECH OR SWALLOWING. STATES RIGHT SIDE STRENGTH CONTINUES TO IMPROVE, BUT ADMITS TO STILL DRAGGING RIGHT LEG SOME. NO PAIN OR OTHER COMPLAINTS.
[2020-01-25] MEDS: SENNA W/DOCUSATE (SENOKOT S) TABLET PO SCH ×2 (08:19→21:22)
[2020-01-25] MEDS: ASPIRIN 325 MG (5 GR) TABLET PO SCH (08:19)
[2020-01-25] MEDS: OMEGA 3 (FISH OIL) 1000 MG CAP PO SCH (08:19)
[2020-01-25] MEDS: lisINopril 20 MG (PRINIVIL) TABLET PO SCH (08:19)
[2020-01-25] MEDS: CLOPIDOGREL 75 MG (PLAVIX) TABLET PO SCH (08:19)
[2020-01-25] MEDS: polyethylene glycoL POWDER 17 GM (MIRALAX) PACK PO SCH ×2 (08:20→21:21)
[2020-01-25] MEDS: ENOXAPARIN 40 MG/0.4 ML (LOVENOX) SYR SQ SCH ×2 (08:22→21:22)
[2020-01-25] MEDS ORDERED: lisINopril 5 MG (PRINIVIL) TABLET PO SCH (09:00)
--- NOTE | 2020-01-25 09:39 | PM&R Progress Note ---
Subjective HPI/CC On Admission Date Seen by Provider: Jan 25, 2020 Time Seen by Provider: 09:50 Subjective/Events-last exam No BM for two days Right leg drags a bit may need an AFO Right arm is improving Overall feels like he is doing very well but he has more medical problems than he realizes CT scan showed extensive calcified vessels in the brain Checked meds and labs Conferred with RN Reviewed therapy notes Review of Systems General: Fatigue Musculoskeletal: leg pain Neurological: Weakness, Numbness, Incoordination Objective Exam Vital Signs Vital Signs Date Time Temp Pulse Resp B/P (MAP) Pulse Ox O2 Delivery O2 Flow Rate FiO2 01/25/20 17:20 37.0 71 18 136/80 (98) 96 Room Air Capillary Refill : Less Than 3 Seconds General Appearance: No Apparent Distress, WD/WN, Obese HEENT: PERRL/EOMI, Normal ENT Inspection, Pharynx Normal Neck: Full Range of Motion, Normal Inspection, Non Tender, Supple, Carotid Bruit Respiratory: Chest Non Tender, Lungs Clear, Normal Breath Sounds, No Accessory Muscle Use, No Respiratory Distress Cardiovascular: Regular Rate, Rhythm, No Edema, No Gallop, No JVD, No Murmur, Normal Peripheral Pulses Gastrointestinal: Normal Bowel Sounds, No Organomegaly, No Pulsatile Mass, Non Tender, Soft Back: Normal Inspection, No CVA Tenderness, No Vertebral Tenderness Extremity: Normal Capillary Refill, Normal Inspection, Normal Range of Motion (right arm 3/5 ), Non Tender, No Calf Tenderness, No Pedal Edema Neurologic/Psychiatric: Alert, Oriented x3, No Motor/Sensory Deficits, Normal 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 FIM Transfers Therapy Code Descriptions/Definitions Functional [place] Measure: 0=Not Assessed/NA 4=Minimal Assistance 1=Total Assistance 5=Supervision or Setup 2=Maximal Assistance 6=Modified [place] 3=Moderate Assistance 7=Complete IndependenceSCALE: Activities may be completed with or without assistive devices. 4-Retlagcjji-wdfgusw completes the activity by him/herself with no assistance from a helper. 5-Set-up or Clean-up Assistance-helper sets up or cleans up; patient completes activity. [place] assists only prior to or following the activity. 4-Supervision or Touching Assistance-helper provides verbal cues and/or touching/steadying and/or contact guard assistance as patient completes activity. Assistance may be provided throughout the activity or intermittently. 3-Partial/Moderate Assistance-helper does LESS THAN HALF the effort. [place] lifts, holds or supports trunk or limbs, but provides less than half the effort. 2-Substantial/Maximal Assistance-helper does MORE THAN HALF the effort. [place] lifts or holds trunk or limbs and provides more than half the effort. 0-Dmzyfdlgb-mcjsxg does ALL the effort. Patient does none of the effort to complete the activity. Or, the assistance of 2 or more helpers is required for the patient to complete the activity. If activity was not attempted, code reason: 7-Patient Refused. 9-Not Applicable-not attempted and the patient did not perform the activity before the current illness, exacerbation or injury. 10-Not Attempted due to Environmental Limitations-(lack of equipment, weather restraints, etc.). 88-Not Attempted due to Medical Conditions or Safety Concerns. Roll Left to Right (QC): 6 Sit to Lying (QC): 6 Sit to Stand (QC): 5 Chair/Tks-jh-Qbnua Xfer(QC): 5 Car Transfer (QC): 5 Gait Training Does the Patient Walk?: Yes Walk 10 feet (QC): 5 Walk 50 ft with 2 Turns(QC): 5 Walk 150 ft (QC): 5 Walking 10ft/uneven surface-QC: 5 Gait Assistive Device: FWW Wheelchair Training Does the Pt Use a Wheelchair?: No Wheel 50 ft with 2 turns (QC): 9 Wheel 150 ft (QC): 9 Stair Training #of Steps: 1 1 Step (curb) (QC): 5 4 Steps (QC): 88 12 Steps (QC): 88 Balance Picking up an Object (QC): 3 Assessment/Plan Assessment and Plan Assess & Plan/Chief Complaint Assessment: Left thalamic CVA presumed to have occurred 01/19/20 due to right foot drop and fall and drooling HTN new dx HLP new dx Increased BMI RBBB on EKG 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
--- NOTE | 2020-01-25 11:00 | NUR ---
MADE UP AD STEFAN IN ROOM PER KWADWO KINCAID.
--- NOTE | 2020-01-25 11:56 | Physical Therapy Daily Note ---
PT Daily Note-Current Subjective Patient in recliner pre tx, agrees to PT, has no complaints of pain. Appearance Patient in recliner post tx with nurse call, phone, tray, all needs met. Mental Status Patient Orientation: Normal For Age Transfers SCALE: Activities may be completed with or without assistive devices. 1-Vtqplzwrfa-qbsache completes the activity by him/herself with no assistance from a helper. 5-Set-up or Clean-up Assistance-helper sets up or cleans up; patient completes activity. [place] assists only prior to or following the activity. 4-Supervision or Touching Assistance-helper provides verbal cues and/or touching/steadying and/or contact guard assistance as patient completes activity. Assistance may be provided throughout the activity or intermittently. 3-Partial/Moderate Assistance-helper does LESS THAN HALF the effort. [place] lifts, holds or supports trunk or limbs, but provides less than half the effort. 2-Substantial/Maximal Assistance-helper does MORE THAN HALF the effort. [place] lifts or holds trunk or limbs and provides more than half the effort. 9-Zewdbiwpc-hvyjzg does ALL the effort. Patient does none of the effort to complete the activity. Or, the assistance of 2 or more helpers is required for the patient to complete the activity. If activity was not attempted, code reason: 7-Patient Refused. 9-Not Applicable-not attempted and the patient did not perform the activity before the current illness, exacerbation or injury. 10-Not Attempted due to Environmental Limitations-(lack of equipment, weather restraints, etc.). 88-Not Attempted due to Medical Conditions or Safety Concerns. Sit to Stand (QC): 6 Chair/Tzi-op-Ixvzx Xfer(QC): 6 Weight Bearing Right Lower Extremity: Right Full Weight Bearing Left Lower Extremity: Left Full Weight Bearing Gait Training Distance: 400'x2 Walk 10 feet (QC): 6 Walk 50 ft with 2 Turns(QC): 6 Walk 150 ft (QC): 6 Gait Assistive Device: FWW slow but steady ambulation, good foot and toes clearance on the right side, patient states he has to concentrate on it. Exercises Supine Ex: Heel Slides, Straight leg raise, Hip abd/add (with RTB and ball) Supine Reps: 20 Standing: Heel/toe raises, Step-ups Standing Reps: 20 sit to stand (no hands) 2 sets of 10, LAQ right side for 5 min with 2# ankle weight, side stepping 20'x2, SLS 1 min, lunges (right side) x20 Neuromuscular [place] 25/28, talked to nurse and patient will be independent in room for now, can use the restroom by himself Treatments ambulation, transfers, functional strengthening, balance training Assessment Current Status: Fair Progress occasional rest breaks due to fatigue PT Inspector Exhaust Emissions Goals Inspector Exhaust Emissions Goals PT Inspector Exhaust Emissions Goals Time Frame: Feb 06, 2020 Roll Left & Right (QC): 6 Sit to Lying (QC): 6 Lying-Sitting on Side/Bed(QC): 6 Sit to Stand (QC): 6 Chair/Ujh-ih-Qcelc Xfer(QC): 6 Toilet Transfer (QC): 6 Car Transfer (QC): 6 Does the Patient Walk: Yes Walk 10 feet (QC): 6 Walk 50ft with 2 Turns (QC): 6 Walk 150 ft (QC): 6 Walking 10ft on Uneven Surface: 6 1 Step (curb) (QC): 6 4 Steps (QC): 6 12 Steps (QC): 6 Picking up an Object (QC): 6 Does the Pt use WC or Scooter?: No Wheel 50 feet with 2 turns (QC: 9 Type: N/A Wheel 150 feet: 9 Type: N/A PT Plan Problem List Problem List: Activity Tolerance, Functional Strength, Safety, Balance, Gait, Transfer Treatment/Plan Treatment Plan: Continue Plan of Care Treatment Plan: Concurrent Therapy, Education, Functional Activity Mari, Functional Strength, Gait, Safety, Therapeutic Exercise Treatment Duration: Feb 06, 2020 Frequency: At least 5 of 7 days/Wk (IRF) Estimated Hrs Per Day: 1.5 hours per day Patient and/or Family Agrees t: Yes Safety Risks/Education Patient Education: Gait Training, Transfer Techniques, Correct Positioning, Safety Issues Teaching Recipient: Patient Teaching Methods: Demonstration, Discussion Response to Teaching: Reinforcement Needed Time/GCodes Time In: 1000 Time Out: 1100 Total Billed Treatment Time: 60 Total Billed Treatment 1 visit GT 25' EX 35' SANJIV VALDEZ PT Jan 25, 2020 11:56
--- NOTE | 2020-01-25 12:47 | NUR ---
CM/SS ADMISSION Patient was admitted to ARU from [facility] 01/23/20 for CVA. Additional comorbidities include, in part, left thalamic infarction, basal ganglia stroke, RBBB, internal carotid artery stenosis, HTN, CVA. Patient resides with his spouse, Nette Poole, and will return there when released. Patient is retired, Nette continues second time worker employment. Patient will, therefore, have alone time during the day unless unsafe to do so. PCP: None established. He states he will be going to Nette's physician, Dr. María Elena Medina, DO, [address], [place]. [phone] PHARMACY: None established but will use [facility], [place], [place]. [phone] INSURANCE: [employer] [facility] DME: No previous needs. Patient has FWW acet-mo-haljo he plans to use, will continue to partner with therapy team regarding their recommendations as patient progresses. BARRIERS TO DISCHARGE: Indications that patient was not of a mindset of preventative health care with no history of primary care but with positive list of diagnoses. Encourage compliance to ongoing health management post discharge. CONTACTS: Nette Poole, Spouse [phone] Mendez Poole, Son [phone] Patient understands the purpose and process of the weekly patent care conference and that his first review will be Saturday, January 27, 2020.
--- NOTE | 2020-01-25 13:58 | Physical Therapy Daily Note ---
PT Daily Note-Current Subjective Patient in recliner pre tx, agrees to PT, has no complaints of pain. Appearance Patient in recliner post tx with nurse call, phone, tray, all needs met. Mental Status Patient Orientation: Normal For Age Transfers SCALE: Activities may be completed with or without assistive devices. 5-Tmgixtmuvh-unbqlbq completes the activity by him/herself with no assistance from a helper. 5-Set-up or Clean-up Assistance-helper sets up or cleans up; patient completes activity. [place] assists only prior to or following the activity. 4-Supervision or Touching Assistance-helper provides verbal cues and/or touching/steadying and/or contact guard assistance as patient completes activity. Assistance may be provided throughout the activity or intermittently. 3-Partial/Moderate Assistance-helper does LESS THAN HALF the effort. [place] lifts, holds or supports trunk or limbs, but provides less than half the effort. 2-Substantial/Maximal Assistance-helper does MORE THAN HALF the effort. [place] lifts or holds trunk or limbs and provides more than half the effort. 7-Gfbyijdlg-zrxuny does ALL the effort. Patient does none of the effort to complete the activity. Or, the assistance of 2 or more helpers is required for the patient to complete the activity. If activity was not attempted, code reason: 7-Patient Refused. 9-Not Applicable-not attempted and the patient did not perform the activity before the current illness, exacerbation or injury. 10-Not Attempted due to Environmental Limitations-(lack of equipment, weather restraints, etc.). 88-Not Attempted due to Medical Conditions or Safety Concerns. Sit to Stand (QC): 6 Chair/Fog-bx-Syhqs Xfer(QC): 6 Weight Bearing Right Lower Extremity: Right Full Weight Bearing Left Lower Extremity: Left Full Weight Bearing Gait Training Distance: 400'x2 Walk 10 feet (QC): 6 Walk 50 ft with 2 Turns(QC): 6 Walk 150 ft (QC): 6 Gait Assistive Device: FWW slow but steady ambulation Exercises NuStep Minutes: 15 NuStep Workload: 5 Treatments transfers, ambulation, functional strengthening Assessment Current Status: Fair Progress improving general mobility and endurance PT Assisted Goals Assisted Goals PT Assisted Goals Time Frame: Feb 06, 2020 Roll Left & Right (QC): 6 Sit to Lying (QC): 6 Lying-Sitting on Side/Bed(QC): 6 Sit to Stand (QC): 6 Chair/Tof-nl-Dqibq Xfer(QC): 6 Toilet Transfer (QC): 6 Car Transfer (QC): 6 Does the Patient Walk: Yes Walk 10 feet (QC): 6 Walk 50ft with 2 Turns (QC): 6 Walk 150 ft (QC): 6 Walking 10ft on Uneven Surface: 6 1 Step (curb) (QC): 6 4 Steps (QC): 6 12 Steps (QC): 6 Picking up an Object (QC): 6 Does the Pt use WC or Scooter?: No Wheel 50 feet with 2 turns (QC: 9 Type: N/A Wheel 150 feet: 9 Type: N/A PT Plan Problem List Problem List: Activity Tolerance, Functional Strength, Safety, Balance, Gait, Transfer Treatment/Plan Treatment Plan: Continue Plan of Care Treatment Plan: Concurrent Therapy, Education, Functional Activity Mari, Functional Strength, Gait, Safety, Therapeutic Exercise Treatment Duration: Feb 06, 2020 Frequency: At least 5 of 7 days/Wk (IRF) Estimated Hrs Per Day: 1.5 hours per day Patient and/or Family Agrees t: Yes Safety Risks/Education Patient Education: Gait Training, Transfer Techniques, Correct Positioning, Safety Issues Teaching Recipient: Patient Teaching Methods: Demonstration, Discussion Response to Teaching: Reinforcement Needed Time/GCodes Time In: 1330 Time Out: 1400 Total Billed Treatment Time: 30 Total Billed Treatment 1 visit EX 15' GT 15' SANJIV VALDEZ PT Jan 25, 2020 13:58
--- NOTE | 2020-01-25 14:01 | Occupational Therapy Eval ---
OT Evaluation-General/PLF Medical Diagnosis Admission Date Jan 23, 2020 at 10:18 Medical Diagnosis: CVA Onset Date: Jan 18, 2020 Therapy Diagnosis Therapy Diagnosis: Right sided weakness Precautions Precautions/Isolations: Fall Prevention Weight Bear Status Weight Bearing Restriction: Weight Bearing/Tolerated Referral Physician: Daisy Teran DO Referral Reason: Activity Tolerance, Self Care, Evaluation/Treatment, Strengthening/ROM Medical History Pertinent Medical History: CVA, HTN Current History Pt. states that he became weak at home, and fell. Able to get self up, and went to bed. The next day he did not feel well and could not walk, and was having difficulty moving right UE and talking. Spouse brought him to hospital in [place], where he was diagnosed with CVA. Reviewed History: Yes Social History Home: Single Level Current Living Status: Significant Other Entry Into Home: Stairs With Railing Steps Into Home: 3 ADL-Prior Level of Function SCALE: Activities may be completed with or without assistive devices. 2-Ywpklaanop-zjyflte completes the activity by him/herself with no assistance from a helper. 5-Set-up or Clean-up Assistance-helper sets up or cleans up; patient completes activity. [place] assists only prior to or following the activity. 4-Supervision or Touching Assistance-helper provides verbal cues and/or touching/steadying and/or contact guard assistance as patient completes activity. Assistance may be provided throughout the activity or intermittently. 3-Partial/Moderate Assistance-helper does LESS THAN HALF the effort. [place] lifts, holds or supports trunk or limbs, but provides less than half the effort. 2-Substantial/Maximal Assistance-helper does MORE THAN HALF the effort. [place] lifts or holds trunk or limbs and provides more than half the effort. 6-Zibrmpram-fmgfze does ALL the effort. Patient does none of the effort to complete the activity. Or, the assistance of 2 or more helpers is required for the patient to complete the activity. If activity was not attempted, code reason: 7-Patient Refused. 9-Not Applicable-not attempted and the patient did not perform the activity before the current illness, exacerbation or injury. 10-Not Attempted due to Environmental Limitations-(lack of equipment, weather restraints, etc.). 88-Not Attempted due to Medical Conditions or Safety Concerns. ADL PLOF Comments Pt. was fully independent with daily skills. Lives at [place] with spouse. 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 Self Care: Independent Functional Cognition: Independent DME/Equipment: Bath Chair, Shower DME/Equipment Comments Pt. states that he will have access to a walker. Occupation: Retired from [employer]. Drive Self: Yes OT Current Status Subjective No pain reported. Appearance Pt. is up in chair and alert. Agrees to work with OT. Mental Status/Objective Patient Orientation: Person, Place, Time, Situation Current Upper Extremity ROM WFL Upper Extremity Coordination Pt. is able to fully flex right hand, touch all fingers, and tie shoes. However, movements are slower and more labored than left hand. Upper Extremity Sensation Pt. reports that he has not sensory issues in right UE, but does have some difficulty with light touch discrimination on back of right UE. Upper Extremity Strength 3+/5 Right UE 5/5 left UE Pt. has full ROM in right UE, but movements are slower than left. Pt. has been using theraband and theraputty from [facility] to increase overall strength of right UE. Pt. reports that strength and movement have greatly increased in right UE since original CVA. ADL-Treatment Eating (QC): 6 Oral Hygiene (QC): 6 (per pt.) Shower/Bathe Self (QC): 7 (Pt. declines showering as he showered yesterday.) Upper Body Dressing (QC): 5 (per pt.) Lower Body Dressing (QC): 4 (per pt) On/Off Footwear (QC): 5 (Pt. able to doff/don socks and shoes while seated. Pt. able to tie and untie shoes.) Toileting Hygiene (QC): 4 Other Treatments Pt. is already dressed and seated in chair when OT enters room. Pt. states that he showered yesterday, and will shower tomorrow. Pt. was able to dress this morning after clothing was handed to him. Pt. practiced doffing/donning shoes and socks for this therapist. Stood and able to balance self at walker while holding walker, and then when not holding walker. Pt. marched in place, and does not that his right LE does not feel as strong during movement. Pt. reports no visual issues. Ambulated with SBA/CGA to therapy gym. Tolerated fine motor coordination exercises with therapy pins and nuts/bolts. Pt using bilateral UE for coordination task. Pt. states, "this feels weird" and movements are slower than they normally would be, but pt. able to complete each task. Ambulated back to room. All needs met. Education OT Patient Education: Correct positioning, Exercise program, Modified ADL techniques, Progress toward Goal/Update tx plan, Purpose of tx/functional activities, Reviewed precautions, Rehab process, Transfer techniques Teaching Recipient: Patient Teaching Methods: Demonstration, Discussion Response to Teaching: Verbalize Understanding, Return Demonstration OT Environmental Compliance Specialist Goals Environmental Compliance Specialist Goals Time Frame: Feb 08, 2020 Eating (QC): 6 Oral Hygiene (QC): 6 Toileting Hygiene (QC): 6 Shower/Bathe Self (QC): 6 Upper Body Dressing (QC): 6 Lower Body Dressing (QC): 6 On/Off Footwear (QC): 6 Additional Goals: 1-Demonstrate ADL Tasks, 2-Verbalize Understanding, 3- ImproveStrength/Mari 1=Demonstrate adherence to instructed precautions during ADL tasks. 2=Patient will verbalize/demonstrate understanding of assistive devices/modifications for ADL. 3=Patient will improve strength/tolerance for activity to enable patient to perform ADL's. OT Education/Plan Problem List/Assessment Assessment: Decreased Activ Tolerance, Decreased UE Strength, Dependent Transfers, Impaired Bed Mobility, Impaired Coordination, Impaired I ADL's, Impaired Self-Care Skills Discharge Recommendations Plan/Recommendations: Continue POC Therapy Discharge Recommendati: Home & Family Treatment Plan/Plan of Care Treatment,Training & Education: Yes Patient would benefit from OT for education, treatment and training to promote independence in ADL's, mobility, safety and/or upper extremity function for ADL's. Plan of Care: ADL Retraining, Functional Mobility, Group Exercise/Act as Ind, UE Funct Exercise/Act Treatment Duration: Feb 08, 2020 Frequency: At least 5 of 7 days/Wk (IRF) Estimated Hrs Per Day: 1.5 hours per day Agreement: Yes Rehab Potential: Good Time/GCodes Start Time: 08:30 Stop Time: 09:30 Total Time Billed (hr/min): 60 Billed Treatment Time 1, EVL x 15minutes, ADL x 15minutes, FA x 30minutes GISELLE SANTANA OT Jan 25, 2020 14:01
--- NOTE | 2020-01-25 14:22 | Occupational Ther Daily Note ---
OT Current Status-Daily Note Subjective No pain reported. Appearance Pt. in chair. Agrees to work with OT. Mental Status/Objective Patient Orientation: Person, Place, Time, Situation ADL-Treatment Therapy Code Descriptions/Definitions Functional Gregory Measure: 0=Not Assessed/NA 4=Minimal Assistance 1=Total Assistance 5=Supervision or Setup 2=Maximal Assistance 6=Modified Gregory 3=Moderate Assistance 7=Complete IndependenceSCALE: Activities may be completed with or without assistive devices. 0-Rcnikbtpcd-ycgwanz completes the activity by him/herself with no assistance from a helper. 5-Set-up or Clean-up Assistance-helper sets up or cleans up; patient completes activity. [place] assists only prior to or following the activity. 4-Supervision or Touching Assistance-helper provides verbal cues and/or touching/steadying and/or contact guard assistance as patient completes activity. Assistance may be provided throughout the activity or intermittently. 3-Partial/Moderate Assistance-helper does LESS THAN HALF the effort. [place] lifts, holds or supports trunk or limbs, but provides less than half the effort. 2-Substantial/Maximal Assistance-helper does MORE THAN HALF the effort. [place] lifts or holds trunk or limbs and provides more than half the effort. 7-Wyyyggsdg-fxzynk does ALL the effort. Patient does none of the effort to complete the activity. Or, the assistance of 2 or more helpers is required for the patient to complete the activity. If activity was not attempted, code reason: 7-Patient Refused. 9-Not Applicable-not attempted and the patient did not perform the activity before the current illness, exacerbation or injury. 10-Not Attempted due to Environmental Limitations-(lack of equipment, weather restraints, etc.). 88-Not Attempted due to Medical Conditions or Safety Concerns. Pt. ambulated to therapy gym with SBA using walker. Pt. completed 15 minutes on arm bike at mod resistance, to work on overall strength and endurance. No SOA noted at end of session. Pt. then ambulated back to room with SBA. All needs met and talked with pt.regarding diagnosis and OT goals. Pt. verbalizes understanding. Education OT Patient Education: Correct positioning, Exercise program, Progress toward Goal/Update tx plan, Purpose of tx/functional activities, Reviewed precautions, Rehab process, Transfer techniques Teaching Recipient: Patient Teaching Methods: Demonstration, Discussion Response to Teaching: Verbalize Understanding, Return Demonstration OT Senior Living Goals Senior Living Goals Time Frame: Feb 08, 2020 Eating (QC): 6 Oral Hygiene (QC): 6 Toileting Hygiene (QC): 6 Shower/Bathe Self (QC): 6 Upper Body Dressing (QC): 6 Lower Body Dressing (QC): 6 On/Off Footwear (QC): 6 Additional Goals: 1-Demonstrate ADL Tasks, 2-Verbalize Understanding, 3- ImproveStrength/Mari 1=Demonstrate adherence to instructed precautions during ADL tasks. 2=Patient will verbalize/demonstrate understanding of assistive devices/modifications for ADL. 3=Patient will improve strength/tolerance for activity to enable patient to perform ADL's. OT Education/Plan Problem List/Assessment Assessment: Decreased Activ Tolerance, Impaired I ADL's, Impaired Self-Care Skills Discharge Recommendations Plan/Recommendations: Continue POC Therapy Discharge Recommendati: Home & Family Treatment Plan/Plan of Care Treatment,Training & Education: Yes Patient would benefit from OT for education, treatment and training to promote independence in ADL's, mobility, safety and/or upper extremity function for ADL's. Plan of Care: ADL Retraining, Functional Mobility, Group Exercise/Act as Ind, UE Funct Exercise/Act Treatment Duration: Feb 08, 2020 Frequency: At least 5 of 7 days/Wk (IRF) Estimated Hrs Per Day: 1.5 hours per day Agreement: Yes Rehab Potential: Good Time/GCodes Start Time: 13:00 Stop Time: 13:30 Total Time Billed (hr/min): 30 Billed Treatment Time 1, Ex x 15minutes, FA x 15minutes GISELLE SANTANA OT Jan 25, 2020 14:22
--- NOTE | 2020-01-25 14:49 | NUR ---
Pt is Gnosticist and would like sacraments. Insurance And Benefits Clerk provided prayer and communion and notified Military Nurse per pt request.
--- NOTE | 2020-01-25 14:50 | ST Cognitive Linguistic Eval ---
Speech Evaluation-General Medical Diagnosis CVA Onset Date: Jan 18, 2020 Therapy Diagnosis Therapy Diagnosis: Cognitive-communication Referral Referring Physician: Dr. Teran Medical History Pertinent Medical History: CVA, HTN Reviewed History: Yes Social History Current Living Status: Significant Other Speech PLF-Current Status Prior Level of Function Patient lives at home with his . Prior to this CVA he was independent for his daily needs. Subjective Patient was pleasant and cooperative with the cognitive assessment. Language Eval: Auditory Comprehends Simple Yes/No Ques: Functional Indent/Objects Multiple [place]: Functional Ident/Pics in Multiple [place]: Functional Follows 1-Step Commands: Functional Follows Complex Directions: Functional Follows General Conversations: Functional Language Eval: Verbal Language Completes Spontaneous Greeting: Functional Produces Auto, Serial Info: Functional Imitates Simple Words/Phrases: Functional Word Finding: Functional Requests Basic Needs: Functional States Basic Personal Info: Functional Expresses Complex Ideas: Functional Objective Cognitive Domain Attention: WNL Memory: WNL Problem Solving: Functional Executive Functions: WNL Visuospatial Skills: WNL Composite Severity Rating: WNL Clock Drawing Severity Rating: WNL Objective Formal/Standardized Tests [facility] Mental Status ([facility]) Results 28/30, within normal limits Oral Motor/Speech Production Within Normal Limits Impression The patient is a pleasant 64 y/o male who was admitted to the ARU s/p CVA. Patient was given the SLUMS with a score of 28/30 obtained. Patient's score is within the normal range of function. At this time the patient does not require any further ST services. Speech Patient Assess Expression of Ideas/Wants: Expression (4) Understanding Verbal Content: Understands (4) Brief Interview-Mental Status: Yes Repetition of Three Words: Three (3) Temporal Orientation: Year: Correct (3) Temporal Orientation: Month: Accurate within 5 days(2) Temporal Orientation: Day: Correct (1) Recall : Wear to say "Sock": Yes, no cue required (2) Recall : Color: Yes, no cue required (2) Recall : Bed: Yes, no cue required (2) Memory/Recall Ability: Current season, Location of own room, That he or she is in a hsp/hsp unit Speech-Plan Patient/Family Goals Patient/Family Goals: Patient plans on returning to his home where he lives with his . Treatment Plan Speech Therapy Treatment Plan: Discontinue ST Treatment Duration: Jan 25, 2020 Frequency: 1 time per week Estimated Hrs Per Day: .25 hour per day Rehab Potential: Good Barriers to Learning: None identified Pt/Family Agrees to Plan: Yes Safety Risks/Education Teaching Recipient: Patient Teaching Methods: Discussion Response to Teaching: Verbalize Understanding Education Topics Provided: Safety within his room and communication of wants/needs Time Speech Therapy Time In: 11:00 Speech Therapy Time Out: 11:15 Total Billed Time: 15 Billed Treatment Time 1, [place] CHIARA Carvajal Jan 25, 2020 14:49
--- NOTE | 2020-01-25 15:49 | NUR ---
"RD ASSESSMENT PMHx: stroke PT INTERACTION: Pt was awake and pleasant during nutrition assessment. Pt states current appetite is good, and has been for some time. Note avg PO intake 85% x2d, per chart review. Pt states following a regular diet at home, and has no issues with chewing/swallowing food. Pt states no recent issues with nausea, vomiting, or diarrhea. Pt states some recent issues with constipation. Note last BM was 6/6, and pt currently on bowel regimen of senna BID; and miralax BID, per chart review. Pt states no recent wt changes. Note unable to determine recent wt hx, per chart review. ABNORMAL NUTRITION-RELATED LAB VALUES LOW: HIGH: ALT 74 Est. kcal needs: 2798-1177 kcal | 15-18 kcal/kg Est. Pro needs: 106-133 g Pro | 0.8-1.0 g Pro/kg PES STATEMENT: Given PO intake, no nutrition diagnosis at this time (NO-1.1) INTERVENTION: Continue with current diet order of Regular diet. Will continue to follow and reassess as pt needs, intake, and status change. MONITOR/EVALUATE: PO Intake; Plan of Care; Hydration Status; Weight Status; Lab Values Sanjuana Abad, MS, RD, LD"
[2020-01-25 17:20] VITALS: BP 136/80
[2020-01-26 05:48] VITALS: BP 134/76
[2020-01-26] MEDS: MULTIVIT W/MINERALS TAB (THERAGRAN M) PO SCH (06:13)
--- NOTE | 2020-01-26 06:27 | Individualized Plan of Care ---
Individualized Plan of Care Rehab Nursing IPOC Order Admission Date Jan 23, 2020 at 10:18 Current Orders Orders Patient Visit (01/23/20 ) Pt Eval Moderate Complexity (01/23/20 ) Exercise Therap, Ea 15 Min (01/23/20 ) Gait Training, Ea 15 Min (01/23/20 ) Ambulate 08,12,20 (01/23/20 12:16) Sequential Compression Device Q4H (01/23/20 12:16) Dvt/Vte Risk - Notifiy Physici Q4H (01/23/20 12:16) General/Regular (01/23/20 Lunch) Admission Order(Inpt,Obs,Sdc) (01/23/20 12:22) Vital Signs: Per Unit Policy ( 08,16,00 (01/23/20 12:22) Vincent Hose , (01/23/20 12:22) Sequential Compression Device Q4H (01/23/20 12:22) Animal Ride Attendant-Inpt Rehab Con (01/23/20 12:22) Rehab Nursing Orders-Ipoc (01/23/20 12:22) Physical Therapy Rehab Orders (01/23/20 12:22) Occupational Therapy Rehab Ord (01/23/20 12:22) Speech Therapy Rehab Orders (01/23/20 12:22) Cbc With Automated Diff (01/24/20 06:00) Comprehensive Metabolic Panel (01/24/20 06:00) General/Regular (01/23/20 Dinner) Intake & Output 06,14,22 (01/23/20 12:22) Precautions (Aru) (01/23/20 12:22) Weekly Weight WEEK (01/23/20 12:22) Rehab-Intensity Of Therapy (01/23/20 12:22) Initiate Admission Nursing Pro .admission (01/23/20 12:22) Acetaminophen Tablet (Tylenol Tablet) (01/23/20 12:30) Alprazolam Tablet (Xanax Tablet) (01/23/20 12:30) Calcium Carbonate Chew Tablet (Antacid C (01/23/20 12:30) Diphenhydramine Tablet (Benadryl Tablet) (01/23/20 12:30) Docusate Sodium Capsule (Colace Capsule) (01/23/20 12:30) Bisacodyl Suppository (Dulcolax Supposit (01/23/20 12:30) Lactulose Oral Solution (Enulose Oral So (01/23/20 12:30) Na Phos/Na Biphos Enema (Fleet Enema Vijay (01/23/20 12:30) Guaifenesin/Codeine Syrup (Robitussin Ac (01/23/20 12:30) Loperamide Tablet (Imodium Tablet) (01/23/20 12:30) Enoxaparin Injection (Lovenox Injection) (01/23/20 12:30) Melatonin Tablet (Melatonin Tablet) (01/23/20 12:30) Polyethylene Glycol Powder Pkt (Miralax (01/23/20 21:00) Ondansetron Oral Dissolve Tab (Zofran (01/23/20 12:30) Senna S Tablet (Senokot S Tablet) (01/23/20 21:00) Initiate Admission Nursing Pro .admission (01/23/20 12:22) Aspirin Tablet (Aspirin Tablet) (01/24/20 09:00) Atorvastatin Tablet (Lipitor Tablet) (01/23/20 21:00) Clopidogrel Tablet (Plavix Tablet) (01/24/20 09:00) Enoxaparin Injection (Lovenox Injection) (01/24/20 09:00) Lisinopril Tablet (Zestril Tablet) (01/24/20 09:00) (Nf) Multivitamin With Minerals (Multipl (01/24/20 09:00) (Nf) [place]-3 Fatty Acids/Fish Oil ([place] (01/24/20 09:00) Acetaminophen Tablet/Caplet (Tylenol T (01/23/20 12:45) Therapeutic Multivitamin Tab (Vitamins, (01/24/20 07:00) [place] 3 Capsule (Fish Oil Capsule) (01/24/20 09:00) Enoxaparin Injection (Lovenox Injection) (01/24/20 09:00) Lisinopril Tablet (Zestril Tablet) (01/25/20 09:00) Lisinopril Tablet (Zestril Tablet) (01/25/20 09:00) Patient Visit (01/25/20 ) Gait Training, Ea 15 Min (01/25/20 ) Exercise Therap, Ea 15 Min (01/25/20 ) Patient Visit (01/25/20 ) Speech Sound Lang Comp (01/25/20 ) Rehab Nursing Orders: Ongoing Assess. of Cognitive Status, Ongoing Assess. of Function Status, Bladder Management, Bladder Scan, Bladder Training, Bowel Management, Bowel Training, Disease Management & Educaiton, DVT Prophylaxis, Fall Prevention, Fluid/Electrolyte/Nutrition Mgmt, Infection Prevention, Medication Management & Education, Management of Risks & Complications, Management of Skin Intergrity, Nutrition Management, Pain Management, Patient/Family Support, Safety Management Intensity of Therapy to be met Patient to be seen: Min.3h per day/5 of 7d PT IPOC Problem List: Activity Tolerance, Functional Strength, Safety, Balance, Gait, Transfer Treatment Plan: Continue Plan of Care Concurrent Therapy, Education, Functional Activity Mari, Functional Strength, Gait, Safety, Therapeutic Exercise Treatment Duration: Feb 06, 2020 Frequency: At least 5 of 7 days/Wk (IRF) Estimated Hrs Per Day: 1.5 hours per day OT IPOC Problems: Decreased Activ Tolerance, Impaired I ADL's, Impaired Self-Care Skills OT Treatment, Training and Edu: Yes Plan of Care: ADL Retraining, Functional Mobility, Group Exercise/Act as Ind, UE Funct Exercise/Act Treatment Duration: Feb 08, 2020 Frequency: At least 5 of 7 days/Wk (IRF) Estimated Hrs Per Day: 1.[address] IPOC Speech Therapy Treatment Plan: Discontinue ST Treatment Duration: Jan 25, 2020 Frequency: 1 time per week Estimated Hrs Per Day: .25 hour per day Animal Ride Attendant/Case Mgmt Animal Ride Attendant/Case Managemen: Discharge Planning Dietitian/Geometry Teacher Dietitian/Geometry Teacher to monitor nutritional status and make changes and/or recommendations as needed and work with speech pathology on dietary upgrades as the occur. Physician IPOC Medical Issues being managed closely and that require the 24 hour availability of a physician: Recent CVA with right sided weakness is high risk for recurrent CVA while working on residual in order to safely return home Medical Issues: Bowel/Bladder Function, DVT Prophylaxis, Falls Precautions, Fluid/Electrolyte/Nutrition Balance, Infection Protection, Pain Management Brief Synthesis of Preadmission Screen, Post-Admission Evaluation, and Therapy Evaluations: PT OT will focus on regaining right sided strength in order to safely ambulate without falls and work on fine motor skills of the right hand while monitoring BP Medical Prognosis: Good Anticipated Length of Stay: 7 days JOHAN MIXON DO Jan 26, 2020 06:27
--- NOTE | 2020-01-26 06:27 | PM&R Progress Note ---
Subjective HPI/CC On Admission Date Seen by Provider: Jan 26, 2020 Time Seen by Provider: 09:30 Subjective/Events-last exam No significant issues Working hard with therapy BP good with Lisinopril of 20mg Denies any other significant pain issues No falls but high risk Checked meds and labs Conferred with RN Reviewed therapy notes Review of Systems General: Fatigue Objective Exam Vital Signs Vital Signs Date Time Temp Pulse Resp B/P (MAP) Pulse Ox O2 Delivery O2 Flow Rate FiO2 01/26/20 18:00 37.2 71 18 134/77 (96) 97 Room Air Capillary Refill : Less Than 3 Seconds General Appearance: No Apparent Distress, WD/WN, Obese HEENT: PERRL/EOMI, Normal ENT Inspection, Pharynx Normal Neck: Full Range of Motion, Normal Inspection, Non Tender, Supple, Carotid Bruit Respiratory: Chest Non Tender, Lungs Clear, Normal Breath Sounds, No Accessory Muscle Use, No Respiratory Distress Cardiovascular: Regular Rate, Rhythm, No Edema, No Gallop, No JVD, No Murmur, Normal Peripheral Pulses Gastrointestinal: Normal Bowel Sounds, No Organomegaly, No Pulsatile Mass, Non Tender, Soft Back: Normal Inspection, No CVA Tenderness, No Vertebral Tenderness Extremity: Normal Capillary Refill, Normal Inspection, Normal Range of Motion (right arm 3/5 ), Non Tender, No Calf Tenderness, No Pedal Edema Neurologic/Psychiatric: Alert, Oriented x3, No Motor/Sensory Deficits, Normal Mood/Affect, booth operator II-XII Norm as Tested, Abnormal Gait, Motor Weakness (right arm and right leg weakness 3/5) Skin: Normal Color, Warm/Dry Lymphatic: No Adenopathy Results/Procedures Lab Patient resulted labs reviewed. FIM Transfers Therapy Code Descriptions/Definitions Functional [place] Measure: 0=Not Assessed/NA 4=Minimal Assistance 1=Total Assistance 5=Supervision or Setup 2=Maximal Assistance 6=Modified [place] 3=Moderate Assistance 7=Complete IndependenceSCALE: Activities may be completed with or without assistive devices. 9-Axfsebculh-kgufyxy completes the activity by him/herself with no assistance from a helper. 5-Set-up or Clean-up Assistance-helper sets up or cleans up; patient completes activity. [place] assists only prior to or following the activity. 4-Supervision or Touching Assistance-helper provides verbal cues and/or rex marion/steadying and/or contact guard assistance as patient completes activity. Assistance may be provided throughout the activity or intermittently. 3-Partial/Moderate Assistance-helper does LESS THAN HALF the effort. [place] lifts, holds or supports trunk or limbs, but provides less than half the effort. 2-Substantial/Maximal Assistance-helper does MORE THAN HALF the effort. [place] lifts or holds trunk or limbs and provides more than half the effort. 4-Vjmlfsvpj-jxeczm does ALL the effort. Patient does none of the effort to complete the activity. Or, the assistance of 2 or more helpers is required for the patient to complete the activity. If activity was not attempted, code reason: 7-Patient Refused. 9-Not Applicable-not attempted and the patient did not perform the activity before the current illness, exacerbation or injury. 10-Not Attempted due to Environmental Limitations-(lack of equipment, weather restraints, etc.). 88-Not Attempted due to Medical Conditions or Safety Concerns. Roll Left to Right (QC): 6 Sit to Lying (QC): 6 Sit to Stand (QC): 6 Chair/Qgc-nx-Teslm Xfer(QC): 6 Car Transfer (QC): 5 Gait Training Does the Patient Walk?: Yes Distance: 400'x2 Walk 10 feet (QC): 6 Walk 50 ft with 2 Turns(QC): 6 Walk 150 ft (QC): 6 Walking 10ft/uneven surface-QC: 5 Gait Assistive Device: FWW Wheelchair Training Does the Pt Use a Wheelchair?: No Wheel 50 ft with 2 turns (QC): 9 Wheel 150 ft (QC): 9 Stair Training #of Steps: 1 1 Step (curb) (QC): 5 4 Steps (QC): 88 12 Steps (QC): 88 Balance Picking up an Object (QC): 3 ADL-Treatment Eating (QC): 6 Oral Hygiene (QC): 6 (per pt.) Shower/Bathe Self (QC): 7 (Pt. declines showering as he showered yesterday.) Upper Body Dressing (QC): 5 (per pt.) Lower Body Dressing (QC): 4 (per pt) On/Off Footwear (QC): 5 (Pt. able to doff/don socks and shoes while seated. Pt. 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
[2020-01-26] MEDS: ENOXAPARIN 40 MG/0.4 ML (LOVENOX) SYR SQ SCH ×2 (07:52→20:43)
[2020-01-26] MEDS: ASPIRIN 325 MG (5 GR) TABLET PO SCH (07:52)
[2020-01-26] MEDS: OMEGA 3 (FISH OIL) 1000 MG CAP PO SCH (07:52)
[2020-01-26] MEDS: lisINopril 20 MG (PRINIVIL) TABLET PO SCH (07:52)
[2020-01-26] MEDS: CLOPIDOGREL 75 MG (PLAVIX) TABLET PO SCH (07:52)
[2020-01-26] MEDS: polyethylene glycoL POWDER 17 GM (MIRALAX) PACK PO SCH ×2 (07:54→20:42)
[2020-01-26] MEDS: SENNA W/DOCUSATE (SENOKOT S) TABLET PO SCH ×2 (07:55→20:43)
[2020-01-26 08:00] VITALS: BP 146/85
--- NOTE | 2020-01-26 09:54 | Physical Therapy Daily Note ---
PT Daily Note-Current Subjective Patient in recliner pre tx, agrees to PT, has no complaints of pain. Appearance Patient in recliner post tx with nurse call, phone, tray, all needs met. Mental Status Patient Orientation: Normal For Age Transfers SCALE: Activities may be completed with or without assistive devices. 6-Otptsrdznv-bawpwif completes the activity by him/herself with no assistance from a helper. 5-Set-up or Clean-up Assistance-helper sets up or cleans up; patient completes activity. [place] assists only prior to or following the activity. 4-Supervision or Touching Assistance-helper provides verbal cues and/or touching/steadying and/or contact guard assistance as patient completes activity. Assistance may be provided throughout the activity or intermittently. 3-Partial/Moderate Assistance-helper does LESS THAN HALF the effort. [place] lifts, holds or supports trunk or limbs, but provides less than half the effort. 2-Substantial/Maximal Assistance-helper does MORE THAN HALF the effort. [place] lifts or holds trunk or limbs and provides more than half the effort. 8-Nagctmhuq-menxtf does ALL the effort. Patient does none of the effort to complete the activity. Or, the assistance of 2 or more helpers is required for the patient to complete the activity. If activity was not attempted, code reason: 7-Patient Refused. 9-Not Applicable-not attempted and the patient did not perform the activity before the current illness, exacerbation or injury. 10-Not Attempted due to Environmental Limitations-(lack of equipment, weather restraints, etc.). 88-Not Attempted due to Medical Conditions or Safety Concerns. Sit to Stand (QC): 6 Chair/Ybz-fa-Dqwnw Xfer(QC): 6 Weight Bearing Right Lower Extremity: Right Full Weight Bearing Left Lower Extremity: Left Full Weight Bearing Gait Training Distance: 400', 1200', 120' Walk 10 feet (QC): 6 Walk 50 ft with 2 Turns(QC): 6 Walk 150 ft (QC): 6 Gait Assistive Device: FWW slow but steady ambulation, good heel strike but foot clearance could be a little better but improving Exercises Standing: Heel/toe raises, Mini squats, Step-ups, Stepping over objects Standing Reps: 20 stepping onto and off airex x20 each side NuStep Minutes: 15 NuStep Workload: 5 Treatments transfers, ambulation, functional strengthening, balance training Assessment Current Status: Fair Progress improving balance and endurance PT Flatbed Driver Goals Longterm Goals PT Longterm Goals Time Frame: Feb 06, 2020 Roll Left & Right (QC): 6 Sit to Lying (QC): 6 Lying-Sitting on Side/Bed(QC): 6 Sit to Stand (QC): 6 Chair/Xfc-lw-Qthei Xfer(QC): 6 Toilet Transfer (QC): 6 Car Transfer (QC): 6 Does the Patient Walk: Yes Walk 10 feet (QC): 6 Walk 50ft with 2 Turns (QC): 6 Walk 150 ft (QC): 6 Walking 10ft on Uneven Surface: 6 1 Step (curb) (QC): 6 4 Steps (QC): 6 12 Steps (QC): 6 Picking up an Object (QC): 6 Does the Pt use WC or Scooter?: No Wheel 50 feet with 2 turns (QC: 9 Type: N/A Wheel 150 feet: 9 Type: N/A PT Plan Problem List Problem List: Activity Tolerance, Functional Strength, Safety, Balance, Gait, Transfer Treatment/Plan Treatment Plan: Continue Plan of Care Treatment Plan: Concurrent Therapy, Education, Functional Activity Mari, Functional Strength, Gait, Safety, Therapeutic Exercise Treatment Duration: Feb 06, 2020 Frequency: At least 5 of 7 days/Wk (IRF) Estimated Hrs Per Day: 1.5 hours per day Patient and/or Family Agrees t: Yes Safety Risks/Education Patient Education: Gait Training, Transfer Techniques, Correct Positioning, Safety Issues Teaching Recipient: Patient Teaching Methods: Demonstration, Discussion Response to Teaching: Reinforcement Needed Time/GCodes Time In: 0900 Time Out: 1000 Total Billed Treatment Time: 60 Total Billed Treatment 1 visit GT 30' EX 30' SANJIV VALDEZ PT Jan 26, 2020 09:54
--- NOTE | 2020-01-26 14:43 | Occupational Ther Daily Note ---
OT Current Status-Daily Note Subjective No pain reported. Appearance Pt. up in chair. Dressed and has showered last night. Agreeable to treatment. Mental Status/Objective Patient Orientation: Person, Place, Time, Situation ADL-Treatment Therapy Code Descriptions/Definitions Functional [place] Measure: 0=Not Assessed/NA 4=Minimal Assistance 1=Total Assistance 5=Supervision or Setup 2=Maximal Assistance 6=Modified [place] 3=Moderate Assistance 7=Complete IndependenceSCALE: Activities may be completed with or without assistive devices. 7-Nspeofwnve-bpjvsib completes the activity by him/herself with no assistance from a helper. 5-Set-up or Clean-up Assistance-helper sets up or cleans up; patient completes activity. [place] assists only prior to or following the activity. 4-Supervision or Touching Assistance-helper provides verbal cues and/or touching/steadying and/or contact guard assistance as patient completes activity. Assistance may be provided throughout the activity or intermittently. 3-Partial/Moderate Assistance-helper does LESS THAN HALF the effort. [place] lifts, holds or supports trunk or limbs, but provides less than half the effort. 2-Substantial/Maximal Assistance-helper does MORE THAN HALF the effort. [place] lifts or holds trunk or limbs and provides more than half the effort. 7-Lombghids-fwripg does ALL the effort. Patient does none of the effort to complete the activity. Or, the assistance of 2 or more helpers is required for the patient to complete the activity. If activity was not attempted, code reason: 7-Patient Refused. 9-Not Applicable-not attempted and the patient did not perform the activity before the current illness, exacerbation or injury. 10-Not Attempted due to Environmental Limitations-(lack of equipment, weather restraints, etc.). 88-Not Attempted due to Medical Conditions or Safety Concerns. Eating (QC): 6 Oral Hygiene (QC): 6 Shower/Bathe Self (QC): 5 (Set up to shower per pt. Pt. showered last night with set up for towels. Pt. up ad nayan in room.) Upper Body Dressing (QC): 6 Lower Body Dressing (QC): 5 On/Off Footwear: 6 Toileting Hygiene (QC): 6 Toilet Transfer (QC): 6 Other Treatment Pt. is up in room and up ad nayan. Pt. has showered self last night, and dressed self today. Pt. verbalizes that his right UE is "slightly slower" but pt. is able to complete tasks. Pt. ambulated with walker with SBA to therapy gym. Completed series of fine motor coordination and strengthening tasks. Pt. able to write name, thread beads, and put small pieces into corresponding holes. Pt. does verbalize that right UE is moving better and coordinating better. Pt. is able to retrieve beads from theraputty. Completed 10 minutes on arm bike at mod resistance for increased endurance/strength overall. Ambulated back to room with SBA. All needs met. Education OT Patient Education: Correct positioning, Modified ADL techniques, Progress toward Goal/Update tx plan, Purpose of tx/functional activities, Reviewed precautions, Rehab process, Transfer techniques Teaching Recipient: Patient Teaching Methods: Demonstration, Discussion Response to Teaching: Verbalize Understanding, Return Demonstration OT Software Consultant Goals Software Consultant Goals Time Frame: Feb 08, 2020 Eating (QC): 6 Oral Hygiene (QC): 6 Toileting Hygiene (QC): 6 Shower/Bathe Self (QC): 6 Upper Body Dressing (QC): 6 Lower Body Dressing (QC): 6 On/Off Footwear (QC): 6 Additional Goals: 1-Demonstrate ADL Tasks, 2-Verbalize Understanding, 3-ImproveStrength/Mari 1=Demonstrate adherence to instructed precautions during ADL tasks. 2=Patient will verbalize/demonstrate understanding of assistive devices/modifications for ADL. 3=Patient will improve strength/tolerance for activity to enable patient to perform ADL's. OT Education/Plan Problem List/Assessment Assessment: Decreased Activ Tolerance, Impaired Coordination, Impaired I ADL's Discharge Recommendations Plan/Recommendations: Continue POC Therapy Discharge Recommendati: Home & Family Treatment Plan/Plan of Care Treatment,Training & Education: Yes Patient would benefit from OT for education, treatment and training to promote independence in ADL's, mobility, safety and/or upper extremity function for ADL's. Plan of Care: ADL Retraining, Functional Mobility, Group Exercise/Act as Ind, UE Funct Exercise/Act Treatment Duration: Feb 08, 2020 Frequency: At least 5 of 7 days/Wk (IRF) Estimated Hrs Per Day: 1.5 hours per day Agreement: Yes Rehab Potential: Good Time/GCodes Start Time: 10:00 Stop Time: 11:00 Total Time Billed (hr/min): 60 Billed Treatment Time 1, Ex x 15minutes, FA x 45minutes GISELLE SANTANA OT Jan 26, 2020 14:43
--- NOTE | 2020-01-26 14:48 | Physical Therapy Daily Note ---
PT Daily Note-Current Subjective Patient in recliner pre tx, agrees to PT, has no complaints of pain. Appearance Patient in recliner post tx with nurse call, phone, tray, all needs met. Mental Status Patient Orientation: Person, Place, Situation Transfers SCALE: Activities may be completed with or without assistive devices. 6-Slbzbokuxv-kwhkafm completes the activity by him/herself with no assistance from a helper. 5-Set-up or Clean-up Assistance-helper sets up or cleans up; patient completes activity. [place] assists only prior to or following the activity. 4-Supervision or Touching Assistance-helper provides verbal cues and/or rex marion/steadying and/or contact guard assistance as patient completes activity. Assistance may be provided throughout the activity or intermittently. 3-Partial/Moderate Assistance-helper does LESS THAN HALF the effort. [place] lifts, holds or supports trunk or limbs, but provides less than half the effort. 2-Substantial/Maximal Assistance-helper does MORE THAN HALF the effort. [place] lifts or holds trunk or limbs and provides more than half the effort. 1-Hhdudvuci-rpmflr does ALL the effort. Patient does none of the effort to complete the activity. Or, the assistance of 2 or more helpers is required for the patient to complete the activity. If activity was not attempted, code reason: 7-Patient Refused. 9-Not Applicable-not attempted and the patient did not perform the activity before the current illness, exacerbation or injury. 10-Not Attempted due to Environmental Limitations-(lack of equipment, weather restraints, etc.). 88-Not Attempted due to Medical Conditions or Safety Concerns. Sit to Stand (QC): 6 Chair/Pcl-ws-Klxkr Xfer(QC): 6 Weight Bearing Right Lower Extremity: Right Full Weight Bearing Left Lower Extremity: Left Full Weight Bearing Gait Training Distance: 1200' Walk 10 feet (QC): 6 Walk 50 ft with 2 Turns(QC): 6 Walk 150 ft (QC): 6 Gait Assistive Device: FWW slow but steady ambulation Exercises NuStep Minutes: 10 NuStep Workload: 5 Treatments ambulation, transfers, functional strengthening Assessment Current Status: Fair Progress improving strength and endurance, ambulates independently with a rolling walker PT Group Work Program Director Goals Correction Goals PT Group Work Program Director Goals Time Frame: Feb 06, 2020 Roll Left & Right (QC): 6 Sit to Lying (QC): 6 Lying-Sitting on Side/Bed(QC): 6 Sit to Stand (QC): 6 Chair/Kco-rl-Kukes Xfer(QC): 6 Toilet Transfer (QC): 6 Car Transfer (QC): 6 Does the Patient Walk: Yes Walk 10 feet (QC): 6 Walk 50ft with 2 Turns (QC): 6 Walk 150 ft (QC): 6 Walking 10ft on Uneven Surface: 6 1 Step (curb) (QC): 6 4 Steps (QC): 6 12 Steps (QC): 6 Picking up an Object (QC): 6 Does the Pt use WC or Scooter?: No Wheel 50 feet with 2 turns (QC: 9 Type: N/A Wheel 150 feet: 9 Type: N/A PT Plan Problem List Problem List: Activity Tolerance, Functional Strength, Safety, Balance, Gait, Transfer, Bed Mobility, ROM Treatment/Plan Treatment Plan: Continue Plan of Care Treatment Plan: Concurrent Therapy, Education, Functional Activity Mari, Functional Strength, Gait, Safety, Therapeutic Exercise Treatment Duration: Feb 06, 2020 Frequency: At least 5 of 7 days/Wk (IRF) Estimated Hrs Per Day: 1.5 hours per day Patient and/or Family Agrees t: Yes Safety Risks/Education Patient Education: Gait Training, Transfer Techniques, Correct Positioning, Safety Issues Teaching Recipient: Patient Teaching Methods: Demonstration, Discussion Response to Teaching: Reinforcement Needed Time/GCodes Time In: 1410 Time Out: 1440 Total Billed Treatment Time: 30 Total Billed Treatment 1 visit GT 20' EX 10' SANJIV VALDEZ PT Jan 26, 2020 14:48
--- NOTE | 2020-01-26 14:49 | Occupational Ther Daily Note ---
OT Current Status-Daily Note Subjective No pain reported. Mental Status/Objective Patient Orientation: Person, Place, Time, Situation ADL-Treatment Therapy Code Descriptions/Definitions Functional [place] Measure: 0=Not Assessed/NA 4=Minimal Assistance 1=Total Assistance 5=Supervision or Setup 2=Maximal Assistance 6=Modified [place] 3=Moderate Assistance 7=Complete IndependenceSCALE: Activities may be completed with or without assistive devices. 3-Tctaqwcexf-fdbiwem completes the activity by him/herself with no assistance from a helper. 5-Set-up or Clean-up Assistance-helper sets up or cleans up; patient completes activity. [place] assists only prior to or following the activity. 4-Supervision or Touching Assistance-helper provides verbal cues and/or touching/steadying and/or contact guard assistance as patient completes activity. Assistance may be provided throughout the activity or intermittently. 3-Partial/Moderate Assistance-helper does LESS THAN HALF the effort. [place] lifts, holds or supports trunk or limbs, but provides less than half the effort. 2-Substantial/Maximal Assistance-helper does MORE THAN HALF the effort. [place] lifts or holds trunk or limbs and provides more than half the effort. 6-Negulfewy-cyrlsm does ALL the effort. Patient does none of the effort to complete the activity. Or, the assistance of 2 or more helpers is required for the patient to complete the activity. If activity was not attempted, code reason: 7-Patient Refused. 9-Not Applicable-not attempted and the patient did not perform the activity before the current illness, exacerbation or injury. 10-Not Attempted due to Environmental Limitations-(lack of equipment, weather restraints, etc.). 88-Not Attempted due to Medical Conditions or Safety Concerns. Other Treatment Pt. ambulated to therapy gym. Tolerated bilateral UE exercises x 3 lb. dumbbell, x 10 reps, x 12 exercises. Tolerated in all planes with no difficulty for increased overall strength. Ambulated back to room with walker with SBA. Education OT Patient Education: Purpose of tx/functional activities, Reviewed precautions, Rehab process Teaching Recipient: Patient Teaching Methods: Demonstration, Discussion Response to Teaching: Verbalize Understanding, Return Demonstration OT Prison Goals Prison Goals Time Frame: Feb 08, 2020 Eating (QC): 6 Oral Hygiene (QC): 6 Toileting Hygiene (QC): 6 Shower/Bathe Self (QC): 6 Upper Body Dressing (QC): 6 Lower Body Dressing (QC): 6 On/Off Footwear (QC): 6 Additional Goals: 1-Demonstrate ADL Tasks, 2-Verbalize Understanding, 3- ImproveStrength/Mari 1=Demonstrate adherence to instructed precautions during ADL tasks. 2=Patient will verbalize/demonstrate understanding of assistive devices/modifications for ADL. 3=Patient will improve strength/tolerance for activity to enable patient to perform ADL's. OT Education/Plan Problem List/Assessment Assessment: Decreased Activ Tolerance Discharge Recommendations Plan/Recommendations: Continue POC Therapy Discharge Recommendati: Home & Family Treatment Plan/Plan of Care Treatment,Training & Education: Yes Patient would benefit from OT for education, treatment and training to promote independence in ADL's, mobility, safety and/or upper extremity function for ADL's. Plan of Care: ADL Retraining, Functional Mobility, Group Exercise/Act as Ind, UE Funct Exercise/Act Treatment Duration: Feb 08, 2020 Frequency: At least 5 of 7 days/Wk (IRF) Estimated Hrs Per Day: 1.5 hours per day Agreement: Yes Rehab Potential: Good Time/GCodes Start Time: 13:00 Stop Time: 13:30 Total Time Billed (hr/min): 30 Billed Treatment Time 1, Ex x 30minutes GISELLE SANTANA OT Jan 26, 2020 14:48
[2020-01-26 18:00] VITALS: BP 134/77
[2020-01-27 06:00] VITALS: BP 142/88
[2020-01-27] MEDS: MULTIVIT W/MINERALS TAB (THERAGRAN M) PO SCH (06:23)
--- NOTE | 2020-01-27 07:25 | PM&R Progress Note ---
Subjective HPI/CC On Admission Date Seen by Provider: Jan 27, 2020 Time Seen by Provider: 10:00 Subjective/Events-last exam No major issues Saturday discharge planned Last BM was yesterday Overall doing very well Checked meds and labs Conferred with RN Reviewed therapy notes Review of Systems Neurological: Weakness, Numbness, Incoordination Objective Exam Vital Signs Vital Signs Date Time Temp Pulse Resp B/P (MAP) Pulse Ox O2 Delivery O2 Flow Rate FiO2 01/27/20 17:52 37.0 71 19 138/82 (100) 95 Room Air Capillary Refill : Less Than 3 Seconds General Appearance: No Apparent Distress, WD/WN, Obese HEENT: PERRL/EOMI, Normal ENT Inspection, Pharynx Normal Neck: Full Range of Motion, Normal Inspection, Non Tender, Supple, Carotid Bruit Respiratory: Chest Non Tender, Lungs Clear, Normal Breath Sounds, No Accessory Muscle Use, No Respiratory Distress Cardiovascular: Regular Rate, Rhythm, No Edema, No Gallop, No JVD, No Murmur, Normal Peripheral Pulses Gastrointestinal: Normal Bowel Sounds, No Organomegaly, No Pulsatile Mass, Non Tender, Soft Back: Normal Inspection, No CVA Tenderness, No Vertebral Tenderness Extremity: Normal Capillary Refill, Normal Inspection, Normal Range of Motion (right arm 3/5 ), Non Tender, No Calf Tenderness, No Pedal Edema Neurologic/Psychiatric: Alert, Oriented x3, No Motor/Sensory Deficits, Normal Mood/Affect, tray checker II-XII Norm as Tested, Abnormal Gait, Motor Weakness (right arm and right leg weakness 3/5) Skin: Normal Color, Warm/Dry Lymphatic: No Adenopathy Results/Procedures Lab Patient resulted labs reviewed. FIM Transfers Therapy Code Descriptions/Definitions Functional [place] Measure: 0=Not Assessed/NA 4=Minimal Assistance 1=Total Assistance 5=Supervision or Setup 2=Maximal Assistance 6=Modified [place] 3=Moderate Assistance 7=Complete IndependenceSCALE: Activities may be completed with or without assistive devices. 2-Viuonfmhrk-nvhjofb completes the activity by him/herself with no assistance from a helper. 5-Set-up or Clean-up Assistance-helper sets up or cleans up; patient completes activity. [place] assists only prior to or following the activity. 4-Supervision or Touching Assistance-helper provides verbal cues and/or touching/steadying and/or contact guard assistance as patient completes activity. Assistance may be provided throughout the activity or intermittently. 3-Partial/Moderate Assistance-helper does LESS THAN HALF the effort. [place] lifts, holds or supports trunk or limbs, but provides less than half the effort. 2-Substantial/Maximal Assistance-helper does MORE THAN HALF the effort. [place] lifts or holds trunk or limbs and provides more than half the effort. 0-Yxnfjoqmj-eoflrb does ALL the effort. Patient does none of the effort to complete the activity. Or, the assistance of 2 or more helpers is required for the patient to complete the activity. If activity was not attempted, code reason: 7-Patient Refused. 9-Not Applicable-not attempted and the patient did not perform the activity before the current illness, exacerbation or injury. 10-Not Attempted due to Environmental Limitations-(lack of equipment, weather restraints, etc.). 88-Not Attempted due to Medical Conditions or Safety Concerns. Roll Left to Right (QC): 6 Sit to Lying (QC): 6 Sit to Stand (QC): 6 Chair/Hco-my-Fymkt Xfer(QC): 6 Car Transfer (QC): 5 Gait Training Does the Patient Walk?: Yes Distance: 1200' Walk 10 feet (QC): 6 Walk 50 ft with 2 Turns(QC): 6 Walk 150 ft (QC): 6 Walking 10ft/uneven surface-QC: 5 Gait Assistive Device: FWW Wheelchair Training Does the Pt Use a Wheelchair?: No Wheel 50 ft with 2 turns (QC): 9 Wheel 150 ft (QC): 9 Stair Training #of Steps: 1 1 Step (curb) (QC): 5 4 Steps (QC): 88 12 Steps (QC): 88 Balance Picking up an Object (QC): 3 ADL-Treatment Eating (QC): 6 Oral Hygiene (QC): 6 Shower/Bathe Self (QC): 5 (Set up to shower per pt. Pt. showered last night with set up for towels. Pt. 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
--- NOTE | 2020-01-27 09:10 | NUR ---
provided prayer and Communion.
[2020-01-27] MEDS: CLOPIDOGREL 75 MG (PLAVIX) TABLET PO SCH (09:47)
[2020-01-27] MEDS: ASPIRIN 325 MG (5 GR) TABLET PO SCH (09:47)
[2020-01-27] MEDS: lisINopril 20 MG (PRINIVIL) TABLET PO SCH (09:47)
[2020-01-27] MEDS: OMEGA 3 (FISH OIL) 1000 MG CAP PO SCH (09:47)
[2020-01-27] MEDS: ENOXAPARIN 40 MG/0.4 ML (LOVENOX) SYR SQ SCH ×2 (09:48→21:06)
[2020-01-27] MEDS: polyethylene glycoL POWDER 17 GM (MIRALAX) PACK PO SCH ×2 (09:49→21:10)
[2020-01-27] MEDS: SENNA W/DOCUSATE (SENOKOT S) TABLET PO SCH ×2 (09:49→21:26)
--- NOTE | 2020-01-27 10:09 | Physical Therapy Daily Note ---
PT Daily Note-Current Subjective Pt. feels he has made significant progress. States he and his would like him to DC Fri aftn Pain Location: No Pain Reported Mental Status Patient Orientation: Normal For Age Transfers SCALE: Activities may be completed with or without assistive devices. 8-Hsqcyignbb-ybzufnh completes the activity by him/herself with no assistance from a helper. 5-Set-up or Clean-up Assistance-helper sets up or cleans up; patient completes activity. [place] assists only prior to or following the activity. 4-Supervision or Touching Assistance-helper provides verbal cues and/or touching/steadying and/or contact guard assistance as patient completes activity. Assistance may be provided throughout the activity or intermittently. 3-Partial/Moderate Assistance-helper does LESS THAN HALF the effort. [place] lifts, holds or supports trunk or limbs, but provides less than half the effort. 2-Substantial/Maximal Assistance-helper does MORE THAN HALF the effort. [place] lifts or holds trunk or limbs and provides more than half the effort. 8-Rokhujxza-ffvlwt does ALL the effort. Patient does none of the effort to complete the activity. Or, the assistance of 2 or more helpers is required for the patient to complete the activity. If activity was not attempted, code reason: 7-Patient Refused. 9-Not Applicable-not attempted and the patient did not perform the activity before the current illness, exacerbation or injury. 10-Not Attempted due to Environmental Limitations-(lack of equipment, weather restraints, etc.). 88-Not Attempted due to Medical Conditions or Safety Concerns. Roll Left & Right (QC): 6 Sit to Lying (QC): 6 Lying to Sitting/Side of Bed(Q: 6 Sit to Stand (QC): 6 Chair/Bxa-nx-Svucu Xfer(QC): 6 Toilet Transfer (QC): 6 Weight Bearing Right Lower Extremity: Right Full Weight Bearing Left Lower Extremity: Left Full Weight Bearing Gait Training Does the Patient Walk?: Yes Walk 10 feet (QC): 6 Walk 50 ft with 2 Turns(QC): 6 Walk 150 ft (QC): 6 Gait Persons Needed: 1 Gait Assistive Device: FWW gait improving steadily with no LOB, good heel strike and even step length Exercises Supine Ex: Bridging, Ankle pumps, Quad Set, Rolling, Glut sets, Heel Slides, Short Arc Quads, Scooting, Straight leg raise, Hip abd/add Supine Reps: 20 Seated Therapy Exercises: Ankle pumps, Sit to stand, Long arc quads, Hip flexion Seated Reps: 20 sidelying clam shells and hip abd with R hip weakness noted but good progress. also quadruped crawls and tall on knees for balance challenges eyes open and closed NuStep Minutes: 10 NuStep Workload: 3 Assessment Current Status: Good Progress good progress all phases of Rx PT Dice Maker Goals Shelter Goals PT Dice Maker Goals Time Frame: Feb 06, 2020 Roll Left & Right (QC): 6 Sit to Lying (QC): 6 Lying-Sitting on Side/Bed(QC): 6 Sit to Stand (QC): 6 Chair/Nmm-ca-Lqhwv Xfer(QC): 6 Toilet Transfer (QC): 6 Car Transfer (QC): 6 Does the Patient Walk: Yes Walk 10 feet (QC): 6 Walk 50ft with 2 Turns (QC): 6 Walk 150 ft (QC): 6 Walking 10ft on Uneven Surface: 6 1 Step (curb) (QC): 6 4 Steps (QC): 6 12 Steps (QC): 6 Picking up an Object (QC): 6 Does the Pt use WC or Scooter?: No Wheel 50 feet with 2 turns (QC: 9 Type: N/A Wheel 150 feet: 9 Type: N/A PT Plan Treatment/Plan Treatment Plan: Continue Plan of Care Treatment Plan: Concurrent Therapy, Education, Functional Activity Mari, Functional Strength, Gait, Safety, Therapeutic Exercise Treatment Duration: Feb 06, 2020 Frequency: At least 5 of 7 days/Wk (IRF) Estimated Hrs Per Day: 1.5 hours per day Patient and/or Family Agrees t: Yes Safety Risks/Education Patient Education: Gait Training, Transfer Techniques, Correct Positioning, Disease Process, Safety Issues Teaching Recipient: Patient Teaching Methods: Demonstration, Discussion Response to Teaching: Verbalize Understanding, Return Demonstration, Reinforcement Needed pt. c/o some dizziness at position change, discussed safety and staying put til feeling passes Time/GCodes Time In: 900 Time Out: 1000 Total Billed Treatment Time: 60 Total Billed Treatment 1,GT20m,EX25m,FA15m JUNE [place] WEIGHMASTER Jan 27, 2020 10:09
--- NOTE | 2020-01-27 11:53 | Occupational Ther Daily Note ---
OT Current Status-Daily Note Subjective No pain reported. Appearance Pt. up in chair. Already bathed and dressed. Agrees to work with OT. Mental Status/Objective Patient Orientation: Person, Place, Time, Situation ADL-Treatment Therapy Code Descriptions/Definitions Functional [place] Measure: 0=Not Assessed/NA 4=Minimal Assistance 1=Total Assistance 5=Supervision or Setup 2=Maximal Assistance 6=Modified [place] 3=Moderate Assistance 7=Complete IndependenceSCALE: Activities may be completed with or without assistive devices. 3-Jvsgkhvhva-ayzvlfm completes the activity by him/herself with no assistance from a helper. 5-Set-up or Clean-up Assistance-helper sets up or cleans up; patient completes activity. [place] assists only prior to or following the activity. 4-Supervision or Touching Assistance-helper provides verbal cues and/or touching/steadying and/or contact guard assistance as patient completes activity. Assistance may be provided throughout the activity or intermittently. 3-Partial/Moderate Assistance-helper does LESS THAN HALF the effort. [place] lifts, holds or supports trunk or limbs, but provides less than half the effort. 2-Substantial/Maximal Assistance-helper does MORE THAN HALF the effort. [place] lifts or holds trunk or limbs and provides more than half the effort. 2-Oxetajyrz-rkuxgp does ALL the effort. Patient does none of the effort to complete the activity. Or, the assistance of 2 or more helpers is required for the patient to complete the activity. If activity was not attempted, code reason: 7-Patient Refused. 9-Not Applicable-not attempted and the patient did not perform the activity before the current illness, exacerbation or injury. 10-Not Attempted due to Environmental Limitations-(lack of equipment, weather restraints, etc.). 88-Not Attempted due to Medical Conditions or Safety Concerns. Eating (QC): 6 Oral Hygiene (QC): 6 Shower/Bathe Self (QC): 6 (per pt) Upper Body Dressing (QC): 6 Lower Body Dressing (QC): 6 On/Off Footwear: 6 Toileting Hygiene (QC): 6 Toilet Transfer (QC): 6 Other Treatment Pt. up ad nayan in room. Pt. has showered and dressed self independently. Pt. ambulates with OT with CGA, without using walker. No LOB noted without walker. Pt. does ambulate slow for safety. Went to gym and worked on upper level balance tasks. Pt. stood at bars without holding them. Worked on reaching upward and across body, bilateral sides. No LOB noted. Completed ball toss back and forth, as well as kicked, for bilateral coordination and right LE movement. Completed arm bike x mod resistance x 15minutes for strengthening and endurance. Tolerated well. Ambulated back to room. Education OT Patient Education: Correct positioning, Exercise program, Progress toward G oal/Update tx plan, Purpose of tx/functional activities, Reviewed precautions, Rehab process, Transfer techniques Teaching Recipient: Patient Teaching Methods: Demonstration, Discussion Response to Teaching: Verbalize Understanding, Return Demonstration OT [facility] Goals Senior Enlisted Advisor Goals Time Frame: Feb 08, 2020 Eating (QC): 6 Oral Hygiene (QC): 6 Toileting Hygiene (QC): 6 Shower/Bathe Self (QC): 6 Upper Body Dressing (QC): 6 Lower Body Dressing (QC): 6 On/Off Footwear (QC): 6 Additional Goals: 1-Demonstrate ADL Tasks, 2-Verbalize Understanding, 3- ImproveStrength/Mari 1=Demonstrate adherence to instructed precautions during ADL tasks. 2=Patient will verbalize/demonstrate understanding of assistive devices/modifications for ADL. 3=Patient will improve strength/tolerance for activity to enable patient to perform ADL's. OT Education/Plan Problem List/Assessment Assessment: Decreased Activ Tolerance Discharge Recommendations Plan/Recommendations: Continue POC Therapy Discharge Recommendati: Home & Family Treatment Plan/Plan of Care Treatment,Training & Education: Yes Patient would benefit from OT for education, treatment and training to promote independence in ADL's, mobility, safety and/or upper extremity function for ADL' s. Plan of Care: ADL Retraining, Functional Mobility, Group Exercise/Act as Ind, UE Funct Exercise/Act Treatment Duration: Feb 08, 2020 Frequency: At least 5 of 7 days/Wk (IRF) Estimated Hrs Per Day: 1.5 hours per day Agreement: Yes Rehab Potential: Good Time/GCodes Start Time: 10:15 Stop Time: 11:15 Total Time Billed (hr/min): 60 Billed Treatment Time 1, FA x 45minutes, Ex x 15minutes GISELLE SANTANA OT Jan 27, 2020 11:53
--- NOTE | 2020-01-27 14:34 | Therapy Group Daily Note ---
Therapy Daily Group Note Patient Education Topic Home Safety, Home Safety, Exercises, Other List Below (pain management ) Exercises LE Seated Exercise Session Ratio (pt:therapist): 3:1 Goal of Session: Home Safety Strategies, UE/LE Strengthing Goal Met for this Session: Yes Pt Benefit of Group: Contributions to Others, F/U Use of Strategies @Home, Increased Functional Strength, Recognition of Peers, Socialization Other/Notes Pt walked to group with use of 2WW. Pt sits and introduces self, completes ice breaker activity. Pt participates with good attention and appropriateness throughout session. Education provided upon safety within the home to increase safety and awareness of environment upon d/c. Pt able to state safe/ unsafe situations and appropriately attends and responds to questions. Education provided on home exercise with common items through home. Pt able to complete functional UE/LE exercises to increase strength, functional endurance, and encourage higher activity level once d/c'd. Pt returns to room and sits in recliner chair, all needs met. Call light in reach. Start Time: 13:00 Stop Time: 14:00 Total Billed Treatment Time: 60 Total Billed Treatment 1, GRP 4 (60) MELODY ALICIA OTR Jan 27, 2020 14:34
[2020-01-27 17:52] VITALS: BP 138/82
[2020-01-28 05:44] VITALS: BP 106/66
[2020-01-28 06:28] LABS: HEMOGLOBIN 15.8 G/DL (13.3-17.7); MEAN PLATELET VOLUME 9.7 FL (7.4-10.4); RED CELL DISTRIBUTION WIDTH 12.6 % (10.0-14.5); WHITE BLOOD COUNT 7.4 10^3/uL (4.3-11.0)
--- NOTE | 2020-01-28 06:34 | PM&R Progress Note ---
Subjective HPI/CC On Admission Date Seen by Provider: Jan 28, 2020 Subjective/Events-last exam No major issues Saturday discharge planned Last BM was yesterday Overall doing very well Checked meds and labs Conferred with RN Reviewed therapy notes Objective Exam Vital Signs Vital Signs Date Time Temp Pulse Resp B/P (MAP) Pulse Ox O2 Delivery O2 Flow Rate FiO2 01/28/20 05:44 36.6 65 20 106/66 (79) 93 Room Air Capillary Refill : Less Than 3 Seconds General Appearance: No Apparent Distress, WD/WN, Obese HEENT: PERRL/EOMI, Normal ENT Inspection, Pharynx Normal Neck: Full Range of Motion, Normal Inspection, Non Tender, Supple, Carotid Bruit Respiratory: Chest Non Tender, Lungs Clear, Normal Breath Sounds, No Accessory Muscle Use, No Respiratory Distress Cardiovascular: Regular Rate, Rhythm, No Edema, No Gallop, No JVD, No Murmur, Normal Peripheral Pulses Gastrointestinal: Normal Bowel Sounds, No Organomegaly, No Pulsatile Mass, Non Tender, Soft Back: Normal Inspection, No CVA Tenderness, No Vertebral Tenderness Extremity: Normal Capillary Refill, Normal Inspection, Normal Range of Motion (right arm 3/5 ), Non Tender, No Calf Tenderness, No Pedal Edema Neurologic/Psychiatric: Alert, Oriented x3, No Motor/Sensory Deficits, Normal Mood/Affect, carton marker machine II-XII Norm as Tested, Abnormal Gait, Motor Weakness (right arm and right leg weakness 3/5) Skin: Normal Color, Warm/Dry Lymphatic: No Adenopathy Results/Procedures Lab Laboratory Tests 01/28/20 05:40 Patient resulted labs reviewed. FIM Transfers Therapy Code Descriptions/Definitions Functional [place] Measure: 0=Not Assessed/NA 4=Minimal Assistance 1=Total Assistance 5=Supervision or Setup 2=Maximal Assistance 6=Modified [place] 3=Moderate Assistance 7=Complete IndependenceSCALE: Activities may be completed with or without assistive devices. 3-Ofklraktvj-huvycdv completes the activity by him/herself with no assistance from a helper. 5-Set-up or Clean-up Assistance-helper sets up or cleans up; patient completes activity. [place] assists only prior to or following the activity. 4-Supervision or Touching Assistance-helper provides verbal cues and/or touching/steadying and/or contact guard assistance as patient completes activity. Assistance may be provided throughout the activity or intermittently. 3-Partial/Moderate Assistance-helper does LESS THAN HALF the effort. [place] lifts, holds or supports trunk or limbs, but provides less than half the effort. 2-Substantial/Maximal Assistance-helper does MORE THAN HALF the effort. [place] lifts or holds trunk or limbs and provides more than half the effort. 7-Qgvppxcnz-ltejxt does ALL the effort. Patient does none of the effort to complete the activity. Or, the assistance of 2 or more helpers is required for the patient to complete the activity. If activity was not attempted, code reason: 7-Patient Refused. 9-Not Applicable-not attempted and the patient did not perform the activity before the current illness, exacerbation or injury. 10-Not Attempted due to Environmental Limitations-(lack of equipment, weather restraints, etc.). 88-Not Attempted due to Medical Conditions or Safety Concerns. Roll Left to Right (QC): 6 Sit to Lying (QC): 6 Sit to Stand (QC): 6 Chair/Tjl-kq-Rvvqc Xfer(QC): 6 Car Transfer (QC): 5 Gait Training Does the Patient Walk?: Yes Distance: 1200' Walk 10 feet (QC): 6 Walk 50 ft with 2 Turns(QC): 6 Walk 150 ft (QC): 6 Walking 10ft/uneven surface-QC: 5 Gait Persons Needed: 1 Gait Assistive Device: FWW Wheelchair Training Does the Pt Use a Wheelchair?: No Wheel 50 ft with 2 turns (QC): 9 Wheel 150 ft (QC): 9 Stair Training #of Steps: 1 1 Step (curb) (QC): 5 4 Steps (QC): 88 12 Steps (QC): 88 Balance Picking up an Object (QC): 3 ADL-Treatment Eating (QC): 6 Oral Hygiene (QC): 6 Shower/Bathe Self (QC): 6 (per pt) Upper Body Dressing (QC): 6 Lower Body Dressing (QC): 6 On/Off Footwear (QC): 6 Toileting Hygiene (QC): 6 Toilet Transfer (QC): 6 Assessment/Plan Assessment and Plan Assess & Plan/Chief Complaint Assessment: Left thalamic CVA presumed to have occurred 01/19/20 due to right foot drop and fall and drooling HTN new dx HLP new dx Increased BMI RBBB on EKG 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
[2020-01-28] MEDS: MULTIVIT W/MINERALS TAB (THERAGRAN M) PO SCH (06:45)
[2020-01-28] MEDS: OMEGA 3 (FISH OIL) 1000 MG CAP PO SCH (08:55)
[2020-01-28] MEDS: lisINopril 20 MG (PRINIVIL) TABLET PO SCH (08:55)
[2020-01-28] MEDS: ENOXAPARIN 40 MG/0.4 ML (LOVENOX) SYR SQ SCH (08:55)
[2020-01-28] MEDS: ASPIRIN 325 MG (5 GR) TABLET PO SCH (08:55)
[2020-01-28] MEDS: CLOPIDOGREL 75 MG (PLAVIX) TABLET PO SCH (08:56)
[2020-01-28] MEDS: SENNA W/DOCUSATE (SENOKOT S) TABLET PO SCH (08:56)
[2020-01-28] MEDS: polyethylene glycoL POWDER 17 GM (MIRALAX) PACK PO SCH (08:56)
[2020-01-28] MEDS ORDERED: ATOR80TA76 PO (09:59)
[2020-01-28] MEDS ORDERED: LISI-552 PO (09:59)
[2020-01-28] MEDS ORDERED: CLOP75TA69 PO (09:59)
[2020-01-28] MEDS ORDERED: OMG1KC PO (09:59)
[2020-01-28] MEDS ORDERED: ASPI-808 PO (09:59)
--- NOTE | 2020-01-28 10:01 | Discharge Summary ---
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 Elevated ALT c/w heavy ETOH use Plan: IRF protocol Statin Lovenox ASA BP monitoring Increased ACEi dose (1) Left thalamic infarction (2) Basal ganglia stroke (3) BMI 40.0-44.9, adult (4) RBBB (5) Internal carotid artery stenosis (6) Hypertension (7) Alcohol use (8) DVT prophylaxis (9) Hyperlipemia (10) CVA (cerebral vascular accident) Discharge Summary Discharge Physical Examination Allergies: Coded Allergies: No Known Allergies (Verified Allergy, Unknown, 01/23/20) Vitals & I&Os Vital Signs Date Time Temp Pulse Resp B/P (MAP) Pulse Ox O2 Delivery O2 Flow Rate FiO2 01/28/20 15:28 36.6 65 20 106/66 93 Room Air General Appearance: Alert, Oriented X3, Cooperative Respiratory: Clear to Auscultation Cardiovascular: Regular Rate Neuro: Normal Gait, Normal Speech, Strength at 5/5 X4 Ext Psych/Mental Status: Mental Status NL Hospital Course Was the Problem List Reviewed?: Yes Hospital Course: Pt had an uneventful hospital course for 6 days after transferring from [facility] after a stroke. Right foot responded to aggressive structured PT and he was able to gain enough function to ambulate with a walker. Right hand was much improved with fine motor skills and overall he did very well with his hospital stay. He was placed on appropriate stroke medication at [place] and that was sent to [facility] in [facility]. Labs (last 24 hrs) Laboratory Tests 01/24/20 04:32: White Blood Count 8.1, Red Blood Count 4.92, Hemoglobin 15.9, Hematocrit 45, Mean Corpuscular Volume 92, Mean Corpuscular Hemoglobin 32, Mean Corpuscular Hemoglobin Concent 35, Red Cell Distribution Width 13.0, Platelet Count 225, Mean Platelet Volume 9.2, Neutrophils (%) (Auto) 54, Lymphocytes (%) (Auto) 30, Monocytes (%) (Auto) 11, Eosinophils (%) (Auto) 5, Basophils (%) (Auto) 1, Neutrophils # (Auto) 4.3, Lymphocytes # (Auto) 2.4, Monocytes # (Auto) 0.9, Eosinophils # (Auto) 0.4H, Basophils # (Auto) 0.0, Sodium Level 138, Potassium Level 4.0, Chloride Level 106, Carbon Dioxide Level 22, Anion Gap 10, Blood Urea Nitrogen 13, Creatinine 0.75, Estimat Glomerular Filtration Rate > 60, BUN/Creatinine Ratio 17, Glucose Level 105, Calcium Level 8.7, Corrected Calcium 8.9, Total Bilirubin 0.8, Aspartate Amino Transf (AST/SGOT) 31, Alanine Aminotransferase (ALT/SGPT) 74H, Alkaline Phosphatase 55, Total Protein 6.6, Albumin 3.8 01/28/20 05:40: White Blood Count 7.4, Red Blood Count 4.86, Hemoglobin 15.8, Hematocrit 44, Mean Corpuscular Volume 91, Mean Corpuscular Hemoglobin 33, Mean Corpuscular Hemoglobin Concent 36, Red Cell Distribution Width 12.6, Platelet Count 222, Mean Platelet Volume 9.7, Creatinine 0.70 Pending Labs Laboratory Tests 01/24/20 04:32: White Blood Count 8.1, Red Blood Count 4.92, Hemoglobin 15.9, Hematocrit 45, Mean Corpuscular Volume 92, Mean Corpuscular Hemoglobin 32, Mean Corpuscular Hemoglobin Concent 35, Red Cell Distribution Width 13.0, Platelet Count 225, Mean Platelet Volume 9.2, Neutrophils (%) (Auto) 54, Lymphocytes (%) (Auto) 30, Monocytes (%) (Auto) 11, Eosinophils (%) (Auto) 5, Basophils (%) (Auto) 1, Neutrophils # (Auto) 4.3, Lymphocytes # (Auto) 2.4, Monocytes # (Auto) 0.9, Eosinophils # (Auto) 0.4, Basophils # (Auto) 0.0, Sodium Level 138, Potassium Level 4.0, Chloride Level 106, Carbon Dioxide Level 22, Anion Gap 10, Blood Urea Nitrogen 13, Creatinine 0.75, Estimat Glomerular Filtration Rate > 60, BUN/Creatinine Ratio 17, Glucose Level 105, Calcium Level 8.7, Corrected Calcium 8.9, Total Bilirubin 0.8, Aspartate Amino Transf (AST/SGOT) 31, Alanine Aminotransferase (ALT/SGPT) 74, Alkaline Phosphatase 55, Total Protein 6.6, Albumin 3.8 01/28/20 05:40: White Blood Count 7.4, Red Blood Count 4.86, Hemoglobin 15.8, Hematocrit 44, Mean Corpuscular Volume 91, Mean Corpuscular Hemoglobin 33, Mean Corpuscular Hemoglobin Concent 36, Red Cell Distribution Width 12.6, Platelet Count 222, Mean Platelet Volume 9.7, Creatinine 0.70 Discharge Home Medications: Active Scripts Active Lisinopril 20 Mg Tablet 20 Mg PO DAILY@0900 Fish Oil 1,000 mg Capsule ([place] 3 Polyunsat Fatty Acids) 1,000 Mg Cap 2,000 Mg PO DAILY Plavix (Clopidogrel Bisulfate) 75 Mg Tablet 75 Mg PO DAILY Atorvastatin Calcium 80 Mg Tablet 80 Mg PO HS Aspirin 325 Mg Tablet 325 Mg PO DAILY Reported Multiple Vitamin (Multivitamin with Minerals) 1 Each Tablet 1 Each PO DAILY Instructions to patient/family Please see electronic discharge instructions given to patient. Diagnosis/Problems Diagnosis/Problems (1) Left thalamic infarction (2) Basal ganglia stroke (3) BMI 40.0-44.9, adult (4) RBBB (5) Internal carotid artery stenosis (6) Hypertension (7) Alcohol use (8) DVT prophylaxis (9) Hyperlipemia (10) CVA (cerebral vascular accident) Qualifiers: Qualified Codes: I63.9 - Cerebral infarction, unspecified Clinical Quality Measures DVT/VTE Risk/Contraindication: Risk Factor Score Per Nursin RFS Level Per Nursing on Admit: 3=High JOHAN MIXON DO Jan 28, 2020 10:01
--- NOTE | 2020-01-28 10:33 | Physical Therapy Daily Note ---
PT Daily Note-Current Subjective Pts daughter in law is here to perhaps help him get home after DC today. Joins this pt. and therapist for his Rx. Pt. says she is a PT in . Pain Location: No Pain Reported Mental Status Patient Orientation: Normal For Age Transfers SCALE: Activities may be completed with or without assistive devices. 2-Wdigblztgn-lsptgay completes the activity by him/herself with no assistance from a helper. 5-Set-up or Clean-up Assistance-helper sets up or cleans up; patient completes activity. Thicket assists only prior to or following the activity. 4-Supervision or Touching Assistance-helper provides verbal cues and/or touching/steadying and/or contact guard assistance as patient completes activity. Assistance may be provided throughout the activity or intermittently. 3-Partial/Moderate Assistance-helper does LESS THAN HALF the effort. Thicket lifts, holds or supports trunk or limbs, but provides less than half the effort. 2-Substantial/Maximal Assistance-helper does MORE THAN HALF the effort. Thicket lifts or holds trunk or limbs and provides more than half the effort. 4-Ypibhsppa-iephvc does ALL the effort. Patient does none of the effort to complete the activity. Or, the assistance of 2 or more helpers is required for the patient to complete the activity. If activity was not attempted, code reason: 7-Patient Refused. 9-Not Applicable-not attempted and the patient did not perform the activity before the current illness, exacerbation or injury. 10-Not Attempted due to Environmental Limitations-(lack of equipment, weather restraints, etc.). 88-Not Attempted due to Medical Conditions or Safety Concerns. Roll Left & Right (QC): 6 Sit to Lying (QC): 6 Lying to Sitting/Side of Bed(Q: 6 Sit to Stand (QC): 6 Chair/Ltd-id-Aessk Xfer(QC): 6 Toilet Transfer (QC): 6 Car Transfer (QC): 6 Weight Bearing Right Lower Extremity: Right Full Weight Bearing Left Lower Extremity: Left Full Weight Bearing Gait Training Does the Patient Walk?: Yes Walk 10 feet (QC): 6 Walk 50 ft with 2 Turns(QC): 6 Walk 150 ft (QC): 6 Walking 10ft/uneven surface-QC: 6 Gait Persons Needed: 0 Gait Assistive Device: FWW pt. up ad nayan status now, no LOB, meets goals, instructed to cont use of FWW until OP PT instructs to switch to cane or appropriate device of their choice Stair Training Stair Training: Handrails/: 2 handrails #of Steps: 12 1 Step (curb) (QC): 5 4 Steps (QC): 5 12 Steps (QC): 5 Stairs: Pattern: Step to reviewed sequence and foot clearance descending Balance Picking up an Object (QC): 5 Assessment Current Status: Good Progress meets goals PT Half-Way Goals Half-Way Goals PT Campus Executive Director Goals Time Frame: Feb 06, 2020 Roll Left & Right (QC): 6 Sit to Lying (QC): 6 Lying-Sitting on Side/Bed(QC): 6 Sit to Stand (QC): 6 Chair/Ncj-jt-Kjfkz Xfer(QC): 6 Toilet Transfer (QC): 6 Car Transfer (QC): 6 Does the Patient Walk: Yes Walk 10 feet (QC): 6 Walk 50ft with 2 Turns (QC): 6 Walk 150 ft (QC): 6 Walking 10ft on Uneven Surface: 6 1 Step (curb) (QC): 6 4 Steps (QC): 6 12 Steps (QC): 6 Picking up an Object (QC): 6 Does the Pt use WC or Scooter?: No Wheel 50 feet with 2 turns (QC: 9 Type: N/A Wheel 150 feet: 9 Type: N/A PT Plan Treatment/Plan Treatment Plan: Discontinue PT, goals met Treatment Plan: Concurrent Therapy, Education, Functional Activity Mari, Functional Strength, Gait, Safety, Therapeutic Exercise Treatment Duration: Feb 06, 2020 Frequency: At least 5 of 7 days/Wk (IRF) Estimated Hrs Per Day: 1.5 hours per day Patient and/or Family Agrees t: Yes Safety Risks/Education Patient Education: Gait Training, Transfer Techniques, Steps, Correct Positioning, Disease Process, Safety Issues Teaching Recipient: Patient, Family Teaching Methods: Demonstration, Discussion Response to Teaching: Verbalize Understanding, Return Demonstration Time/GCodes Time In: 1100 Time Out: 1125 Total Billed Treatment Time: 25 Total Billed Treatment 1,FA25m JUNE SAINZ POTTERY KILN BUILDER Jan 28, 2020 10:33
--- NOTE | 2020-01-28 11:48 | Therapy Team Discharge Summary ---
Therapy Discharge Summary Discharge Recommendations Date of Discharge Physical Therapy Patient came to rehab following a CVA. Upon evaluation patient performed bed mobility with independence, supine <-> sit with independence, sit <-> stand with SBA, transfers with SBA, car transfer SBA, ambulated 200' with a rolling walker with SBA (including 50' with at least 2 turns of 90 degrees and 10' over an uneven surface), and went up and down 1 step using a rolling walker with SBA. Patient has been performing bed mobility and transfer training, balance and endurance training, functional strengthening, stair training, gait training, and education. Patient has met all of his fci goals except for stairs. Now, patient performs bed mobility and transfers with independence, car transfer with independence, ambulates over 400' with a rolling walker with independence (including 50' with at least 2 turns of 90 degrees and 10' over an uneven surface), and can go up and down 12 steps using 2 handrails with SBA. Patient is discharging from this facility today and will be discharged from PT at this time. Occupational Therapy Decreased Activ Tolerance PT Fdc Goals Fdc Goals PT Fdc Goals Time Frame: Feb 06, 2020 Roll Left to Right (QC): 6 Sit to Lying (QC): 6 Lying-Sitting on Side/Bed(QC): 6 Sit to Stand (QC): 6 Chair/Gyr-dr-Trcsm Xfer(QC): 6 Car Transfer (QC): 6 Does the Patient Walk: Yes Walk 10 feet (QC): 6 Walk 10ft-Uneven Surface(QC): 6 Walk 50ft with 2 Turns (QC): 6 Walk 150 ft (QC): 6 Does the Pt use WC or Scooter?: No Wheel 50 feet with 2 turns (QC: 9 1 Step (curb) (QC): 6 4 Steps (QC): 6 12 Steps (QC): 6 Picking up an Object (QC): 6 OT Fdc Goals Crib Tender Goals Time Frame: Feb 08, 2020 Eating (FIM): 6 Eating (QC): 6 Oral Hygiene (QC): 6 Shower/Bathe Self (QC): 6 Upper Body Dressing (QC): 6 Lower Body Dressing (QC): 6 On/Off Footwear (QC): 6 Toileting(FIM): 6 Toileting Hygiene (QC): 6 Toilet/Commode Transfer (QC): 6 Additional Goals: 1-Demonstrate ADL Tasks, 2-Verbalize Understanding, 3- ImproveStrength/Mari 1=Demonstrate adherence to instructed precautions during ADL tasks. 2=Patient will verbalize/demonstrate understanding of assistive devices/modifications for ADL. 3=Patient will improve strength/tolerance for activity to enable patient to perform ADL's. SANJIV VALDEZ PT Jan 28, 2020 11:48
--- NOTE | 2020-01-28 11:53 | Therapy Team Discharge Summary ---
Therapy Discharge Summary Discharge Recommendations Date of Discharge 01-28-20 Therapy D/C Recommendations: Home w/ Family Support, Home Independently Occupational Therapy Pt. has been seen by occupational therapy to increase overall strength and independence with daily tasks. Pt. has met all goals. Pt. is able to ambulate, shower, dress, and perform all tasks with independence. Pt. is discharging home with spouse support. No further occupational therapy warranted at this time. No Skilled OT Needs ID'd PT Community Aide Goals Half-Way Goals PT Half-Way Goals Time Frame: Feb 06, 2020 Roll Left to Right (QC): 6 Sit to Lying (QC): 6 Lying-Sitting on Side/Bed(QC): 6 Sit to Stand (QC): 6 Chair/Goq-mf-Vkphs Xfer(QC): 6 Car Transfer (QC): 6 Does the Patient Walk: Yes Walk 10 feet (QC): 6 Walk 10ft-Uneven Surface(QC): 6 Walk 50ft with 2 Turns (QC): 6 Walk 150 ft (QC): 6 Does the Pt use WC or Scooter?: No Wheel 50 feet with 2 turns (QC: 9 1 Step (curb) (QC): 6 4 Steps (QC): 6 12 Steps (QC): 6 Picking up an Object (QC): 6 OT Community Aide Goals Community Aide Goals Time Frame: Feb 08, 2020 Eating (FIM): 6 (met) Eating (QC): 6 (met) Oral Hygiene (QC): 6 (met) Shower/Bathe Self (QC): 6 (met) Upper Body Dressing (QC): 6 (met) Lower Body Dressing (QC): 6 (met) On/Off Footwear (QC): 6 (met) Toileting(FIM): 6 (met) Toileting Hygiene (QC): 6 (met) Toilet/Commode Transfer (QC): 6 (met) Additional Goals: 1-Demonstrate ADL Tasks, 2-Verbalize Understanding, 3- ImproveStrength/Mari 1=Demonstrate adherence to instructed precautions during ADL tasks. 2=Patient will verbalize/demonstrate understanding of assistive devices/modifications for ADL. 3=Patient will improve strength/tolerance for activity to enable patient to perform ADL's. GISELLE SANTANA OT Jan 28, 2020 11:53
--- NOTE | 2020-01-28 12:01 | NUR ---
CM/SS WEEKLY PATIENT CARE CONFERENCE and DISCHARGE Reviewed Summary with patient who was in agreement to discharge 01/29/20; however, his insurance denied payment after today. ARU team, physician, and patient agreed to finalize discharge for today and patient will coordinate his transport with family or friends. OP PT: [facility] request [facility] [place] Patient was provided their contact information and facility understands he will call to set up his own schedule. Patient confirmed has FWW available to him. Spouse coming early afternoon to transport.
[2020-01-28 15:28] VITALS: BP 106/66
--- NOTE | 2020-01-28 15:30 | NUR ---
Anointed by Fr Mehta this morning.
== END 2020-01-28 15:10 | disposition home or self-care (01) | DRG 57 ==
PROVIDERS: ADMIT Internal Medicine; ATTEND Internal Medicine
DX: I69.351 Hemiplegia and hemiparesis following cerebral infarction affecting right dominant side (principal); I69.398 Other sequelae of cerebral infarction; M21.371 Foot drop, right foot; Z91.81 History of falling; I45.10 Unspecified right bundle-branch block; I10 Essential (primary) hypertension; E78.5 Hyperlipidemia, unspecified; I65.22 Occlusion and stenosis of left carotid artery; Z72.89 Other problems related to lifestyle
CPT/HCPCS: 36415; 80053; 82565; 85025; 85027